=== PATIENT | female | born 1940 | race Caucasian/White ===

== ENCOUNTER 2018-06-04 17:18 | Inpatient (IN) | payer MEDICARE ==
[2018-06-04] VITALS (9 sets, daily range): BP systolic 87–124; BP diastolic 53–76; BMI 25.0
[~2018-06-04] VITALS: Ht 167.6 cm; Wt 62.2 kg
--- NOTE | ~2018-06-04 | MORECARE ---
CASE MANAGEMENT DISCHARGE SUMMARY PATIENT: MCKENNA VILLANUEVA UNIT: [id number] ADM DATE: 06/04/18 AGE: 78 : 41 SEX: F ROOM/BED: D.0387 AUTHOR: BECKY,DOC PHYSICIAN: REFERRING PHYSICIAN: LEVI MCKENNA MD DATE OF SERVICE: 06/11/18 Discharge Plan Patient Name: MCKENNA VILLANUEVA Facility: [facility]:[place] : 1940 Planned Disposition: Inpatient Rehab Anticipated Discharge Date: 06/11/18 Discharge Date: Expected LOS: 7 Initial Reviewer: [id number] Initial Review Date: 06/07/2018 Generated: 06/11/18 2:35 pm Comments DCP- Discharge Planning Updated by [email or web address]: Davy Elizondo on 06/11/18 12:[address] Patient Name: MCKENNA VILLANUEVA Encounter No: [id number] : 1940 Primary Insurance: MEDICARE A & B Anticipated DC Date: 06-11-2018 Planned Disposition: Inpatient Rehab External Planned Provider: [facility] DCP follow-up note: CM SPOKE TO BALJIT OF INPATIENT REHAB, THEY ARE READY TO ACCEPT PT. CM HAD PREVIOUSLY SPOKEN TO DR. MCKENNA WHO INFORMED CM THAT PT IS STABLE FOR DISCHARGE TO REHAB. CM RECEIVED NOTE TO CALL PT'S FAMILY REGARDING REHAB IN [place]. CM MET WITH PT IN ROOM WHO REPORT THAT SHE WANTS REHAB IN [place] SO SHE CAN BE CLOSE TO FAMILY AND HER DOGGIES. IMPORTANT MESSAGE FROM MEDICARE PROVIDED AND EXPLAINED. PT ASKED THAT CM CALL EAGLE, HER DAUGHTER. CM CALLED EAGLE ENMA, , WHO REQUESTED REFERRAL TO [facility]. 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 CM EXPLAINED THAT PT IS STABLE FOR DISCHARGE TODAY AND THAT PT HAD ALREADY BEEN ACCEPTED FOR REHAB AT [place]. EAGLE REPORTS SHE WANTS PT IN [place] TO BE CLOSE TO FAMILY. CM WILL SEND REFERRAL TO [place] [facility] AND ASK FOR REHAB DETERMINATION FROM [place] SOON POSSIBLE. CM FAXED REFERRAL TO [facility] AT [phone]. CM CALLED [place] [facility], , LEFT DETAILED MESSAGE FOR NADIYA NOTIFYING OF REFERRAL, THAT PT IS STABLE FOR DISCHARGE TODAY AND ASKED FOR DETERMINATION SOON POSSIBLE. CM WAITING ADMISSION DETERMINATION FROM [place] [facility]. JENNIFER Humphrey MANGEMENT DCP- Discharge Planning Updated by [id number]: Davy Elizondo on 06/07/18 4:[address] Patient Name: MCKENNA VILLANUEVA Admission Status: ER Accout number: [id number] Admission Date: 06-04-2018 : 1940 Admission Diagnosis:NON-ST ELEVATION (NSTEMI) MYOCARDIAL INFARCTION Attending: OLIVERIO MCKENNA Current LOS: 3 Anticipated DC Date: Planned Disposition: Inpatient Rehab Primary Insurance: MEDICARE A & B PLANNED EXTERNAL PROVIDER: [facility] Discharge Planning Comments: CM RECEIVED INPATIENT REHAB PRESCREENING ORDER, MET WITH PT IN ROOM TO DISCUSS DISCHARGE PLANNING AND NEEDS. PT REPORTS LIVING AT HOME INDEPENDENTLY WITH HER ADULT DAUGHTER. PT HAS NO MEDICAL EQUIPMENT AND NO OUTSIDE SERVICES ASSISTING IN THE HOME. CM DISCUSSED AVAILABILITY OF HOME HEALTH, REHAB SERVICES AND MEDICAL EQUIPMENT. PT IS AGREEABLE TO REHAB AT [place] WITH PLAN TO DISCHARGE HOME FROM HOSPITAL REHAB; PT REPORTS HER DAUGHTER WILL PICK HER UP FOR DISCHARGE HOME. CM WAITING COMPLETION OF INPATIENT REHAB PRESCREENING AND ADMISSION DETERMINATION FROM [facility]. News Library Director: Davy Elizondo DCPIA - Discharge Planning Initial Assessment Updated by [id number]: Davy Elizondo on 06/11/18 1:30 pm * Is the patient Alert and Oriented? Yes * How many steps to enter\exit or inside your home? NONE * PCP PT REPORTS HAVING ONE, CAN'T REMEMBER NAME RIGHT NOW * Pharmacy [facility] IN [place] * Preadmission Environment Home with Family * ADLs Independent * Equipment None * Other Equipment NO MEDICAL EQUIPMENT PROVIDER PREFERENCE * List name and contact numbers for known caregivers / representatives who currently or will assist patient after discharge: URIAH NORWOOD, DAUGHTER, PHUONG HUYNH, SON, * Verbal permission to speak to the caregivers and representatives has been obtained from the patient. Yes * Community resources currently utilized None * Please name any agencies selected above. NONE * Additional services required to return to the preadmission environment? Yes * Can the patient safely return to the preadmission environment? Yes * Has this patient been hospitalized within the prior 30 days at any hospital? No Coverage Notice Reviewer: [id number] Lucia Elizondo Notice Issued Date-Time: 06/11/2018 9:40 Notice Type: IM Discharge Notice Notice Delivered To: Patient Relationship to Patient: Picker Machine Operator Name: Delivery Method: HAND - Hand Delivered Alma Days: Prior Verbal Notification: Recipient Understood Notice: Yes Recipient Signature: Yes Med Rec Note Co-signed by Attending: Coverage Notice Comment: Last DP export: 06/11/18 12:04 p Patient Name: MCKENNA VILLANUEVA Page 15138 at 1335 All edits/amendments must be made on the electronic document DICTATION DATE: 06/11/18 1334 CERTIFIED REGISTERED NURSE PRACTITIONER: DELBERT 06/11/18 1334 RPT#: [id number] DC DATE: STATUS: ADM IN [facility] [address] [place] [address] END OF REPORT
--- NOTE | ~2018-06-04 | HP ---
PATIENT: MCKENNA SCHMITT MEDICAL RECORD: [id number] ACCOUNT: [id number] LOCATION:[address] : [birth year] ADMISSION DATE: 06/04/18 PCP: No PCP HISTORY AND PHYSICAL EXAMINATION DIAGNOSES: 1. Non-Q-wave myocardial infarction. 2. Atrial fibrillation with rapid ventricular response. 3. Mental status changes. HISTORY: Mrs. Schmitt was found by her family today. She was last seen on Sunday at her house. We do not know how long she was down. She was [facility] to [facility]. Troponin was positive for non-Q-wave myocardial infarction. She is in atrial fibrillation with rapid ventricular response. As best we know, she has no previous cardiac history. She is now being transferred here for further cardiac workup. PHYSICAL EXAMINATION: GENERAL APPEARANCE: Well-nourished, well-developed, appears stated age. Level of distress, comfortable. PSYCHIATRIC: Mental status, alert, normal affect. Orientation, oriented to time, place and person. EYES: Lids and conjunctiva, noninjected. No discharge, no pallor. ENT: Lips, teeth, gums, normal dentition. Oropharynx, no cyanosis, no pallor. NECK: Carotid arteries, bilateral normal upstroke, no bruits, no thrills. JUGULAR VEINS: No jugular venous pressure or distention. CERVICAL LYMPH NODES: Nontender, nonenlarged. THYROID: Not enlarged. Nontender. No nodules. LUNGS: Respiratory effort, unlabored. CHEST: Normal curvature. No thoracic deformity. No chest wall tenderness. Percussion, resonant. Auscultation, clear. No wheezes, no rales, no rhonchi. CARDIOVASCULAR: Tachycardic with atrial fibrillation. EXTREMITIES: No cyanosis, no edema. Peripheral pulses, full and equal in all extremities, except as noted. No bruits appreciated. ABDOMEN: Soft, nondistended. Normal aorta. No bruit. Nontender. No masses. Liver, nontender, no hepatomegaly. Spleen, nontender, no splenomegaly. MUSCULOSKELETAL: No joint tenderness. No joint swelling. No erythema. NEUROLOGICAL: Normal gait, normal strength, normal tone. SKIN: Warm and dry. OVERALL IMPRESSION: Atrial fibrillation with rapid ventricular response. At this time, we will start Cordarone IV. We will use IV diltiazem as well. Proceed with coronary angiography. Further care depends upon findings of the angiography. TRANSINT:[id number] Voice Confirmation ID: [id number] DOCUMENT ID: [id number] HISTORY AND PHYSICAL [id number] PAGE,LEVI MONTILLA MD at 1718 CC: [id number] DICTATION DATE: 06/04/18 174 CONVEX GRINDER: 06/04/18 175 ADM IN [place] [id number] [place] [address]
--- NOTE | ~2018-06-04 | MORECARE ---
CASE MANAGEMENT DISCHARGE SUMMARY PATIENT: MCKENNA VILLANUEVA UNIT: [id number] ADM DATE: 06/04/18 AGE: 78 : 41 SEX: F ROOM/BED: D.7601 AUTHOR: LINETTE PENA PHYSICIAN: REFERRING PHYSICIAN: LEVI MCKENNA MD DATE OF SERVICE: 06/12/18 Discharge Plan Patient Name: MCKENNA VILLANUEVA Facility: [facility]:[place] : 1940 Planned Disposition: Inpatient Rehab Anticipated Discharge Date: 06/12/18 Discharge Date: Expected LOS: 8 Initial Reviewer: [id number] Initial Review Date: 06/07/2018 Generated: 06/12/18 11:09 am Comments DCP- Discharge Planning Updated by [id number]: Davy Elizondo on 06/12/18 9:[address] Patient Name: MCKENNA VILLANUEVA Encounter No: [id number] : 1940 Primary Insurance: MEDICARE A & B Anticipated DC Date: 06-12-2018 Planned Disposition: Inpatient Rehab External Planned Provider: [facility] DCP follow-up note: CM RECEIVED CALL FROM BEHZAD OF [place] [facility], , PT ACCEPTED FOR REHAB TODAY, SHE HAS NOTIFIED PT'S DAUGHTER WHO WILL PROVIDE TRANSPORTATION TO [place] [facility] TODAY. PT NOTIFIED AND IN AGREEMENT WITH DISCHARGE TO REHAB TODAY, ASKED CM TO CALL HER DAUGHTER TO PICK HER UP. BEDSIDE NURSE NOTIFIED. CM CALLED EAGLE NORWOOD, , LEFT TELEPHONE [facility] OF PT'S ACCEPTANCE FOR [facility]AB AT [place] [facility] REQUESTED TRANSPORT OF PT TO REHAB TODAY. FAX DISCHARGE INFORMATION TO [facility] AT [phone]. NURSE REPORT TO BE CALLED [facility], . DAUGHTER TO PROVIDE TRANSPORTATION TO REHAB TODAY. JENNIFER Humphrey DCP- Discharge Planning Updated by [id number]: Davy Elizondo on 06/11/18 2:[address] Patient Name: MCKENNA VILLANUEVA Encounter No: [id number] : 1940 Primary Insurance: MEDICARE A & B Anticipated DC Date: 06-11-2018 Planned Disposition: Inpatient Rehab External [facility] DCP follow-up note: CM SPOKE TO BALJIT OF INPATIENT REHAB, THEY ARE READY TO ACCEPT PT. CM HAD PREVIOUSLY SPOKEN TO DR. MCKENNA WHO INFORMED CM THAT PT IS STABLE FOR DISCHARGE TO REHAB. CM RECEIVED NOTE TO CALL PT'S FAMILY REGARDING REHAB IN [place]. CM MET WITH PT IN ROOM WHO REPORT THAT SHE WANTS REHAB IN [place] SO SHE CAN BE CLOSE TO FAMILY AND HER DOGGIES. IMPORTANT MESSAGE FROM MEDICARE PROVIDED AND EXPLAINED. PT ASKED THAT CM CALL EAGLE, HER DAUGHTER. CM CALLED EAGLE NORWOOD, , WHO REQUESTED REFERRAL TO [facility]. 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 CM EXPLAINED THAT PT IS STABLE FOR DISCHARGE TODAY AND THAT PT HAD ALREADY BEEN ACCEPTED FOR REHAB AT [place]. EAGLE REPORTS SHE WANTS PT IN [place] TO BE CLOSE TO FAMILY. CM WILL SEND REFERRAL TO [place] [facility] AND ASK FOR REHAB DETERMINATION FROM [place] SOON POSSIBLE. CM FAXED REFERRAL TO [facility] AT [phone]. [facility], , LEFT DETAILED MESSAGE FOR NADIYA NOTIFYING OF REFERRAL, THAT PT IS STABLE FOR DISCHARGE TODAY AND ASKED FOR DETERMINATION SOON POSSIBLE. CM WAITING ADMISSION DETERMINATION FROM [facility]. JENNIFER Humphrey Appended by Davy Elizondo on 06/11/2018 15:04 MATERIALS MANAGEMENT MANAGER: CM RECEIVED CALL FROM BEHZAD OF [facility], , REFERRAL RECEIVED, CM INFORMED BEHZAD \ THAT PT IS STABLE FOR DISCHARGE TODAY AND ASKED FOR DETERMINATION SOON POSSIBLE. FAMILY TO PROVIDE TRANSPORTATION TO [place] [facility] IF ACCEPTED. CM WAITING ADMISSION DETERMINATION FROM [facility]. JENNIFER Humphrey DCP- Discharge Planning Updated by [id number]: Davy Elizondo on 06/07/18 4:[address] Patient Name: MCKENNA VILLANUEVA Admission Status: ER Accout number: [id number] Admission Date: 06-04-2018 : 1940 Admission Diagnosis:NON-ST ELEVATION (NSTEMI) MYOCARDIAL INFARCTION Attending: OLIVERIO MCKENNA Current LOS: 3 Anticipated DC Date: Planned Disposition: Inpatient Rehab Primary Insurance: MEDICARE A & B PLANNED EXTERNAL PROVIDER: [facility] IN[facility] Discharge Planning Comments: CM RECEIVED INPATIENT REHAB PRESCREENING ORDER, MET WITH PT IN ROOM TO DISCUSS DISCHARGE PLANNING AND NEEDS. PT REPORTS LIVING AT HOME INDEPENDENTLY WITH HER ADULT DAUGHTER. PT HAS NO MEDICAL EQUIPMENT AND NO OUTSIDE SERVICES ASSISTING IN THE HOME. CM DISCUSSED AVAILABILITY OF HOME HEALTH, REHAB SERVICES AND MEDICAL EQUIPMENT. PT IS AGREEABLE TO REHAB AT [place] WITH PLAN TO DISCHARGE HOME FROM HOSPITAL REHAB; PT REPORTS HER DAUGHTER WILL PICK HER UP FOR DISCHARGE HOME. CM WAITING COMPLETION OF INPATIENT REHAB PRESCREENING AND ADMISSION DETERMINATION FROM [facility]. Shingles Roofer: Davy Elizondo DCPIA - Discharge Planning Initial Assessment Updated by [id number]: Davy Elizondo on 06/11/18 1:30 pm * Is the patient Alert and Oriented? Yes * How many steps to enter\exit or inside your home? NONE * PCP PT REPORTS HAVING ONE, CAN'T REMEMBER NAME RIGHT NOW * Pharmacy [facility] IN [place] * Preadmission Environment Home with Family * ADLs Independent * Equipment None * Other Equipment NO MEDICAL EQUIPMENT PROVIDER PREFERENCE * List name and contact numbers for known caregivers / representatives who currently or will assist patient after discharge: URIAH NORWOOD, DAUGHTER, PHUONG HUYNH, SON, * Verbal permission to speak to the caregivers and representatives has been obtained from the patient. Yes * Community resources currently utilized None * Please name any agencies selected above. NONE * Additional services required to return to the preadmission environment? Yes * Can the patient safely return to the preadmission environment? Yes * Has this patient been hospitalized within the prior 30 days at any hospital? No Coverage Notice Reviewer: [id number] - Davy Elizondo Notice Issued Date-Time: 06/11/2018 9:40 Notice Type: IM Discharge Notice Notice Delivered To: Patient Relationship to Patient: Laboratory Mechanical Technician Name: Delivery Method: HAND - Hand Delivered Alma Days: Prior Verbal Notification: Recipient Understood Notice: Yes Recipient Signature: Yes Med Rec Note Co-signed by Attending: Coverage Notice Comment: Last DP export: 06/12/18 9:01 a Patient Name: MCKENNA VILLANUEVA Page 90518 at 1009 All edits/amendments must be made on the electronic document DICTATION DATE: 06/12/181007 AGRICULTURAL SERVICE WORKER: DELBERT 06/12/181007 RPT#: [id number] DC DATE: STATUS: ADM IN [facility] [address] [place] [address] END OF REPORT
--- NOTE | ~2018-06-04 | OP ---
PATIENT NAME: MCKENNA VILLANUEVA MEDICAL RECORD: [id number] :[birth year] LOCATION:D.M2 D.7 ADMISSION DATE:06/04/18 SURGEON: LEVI MCKENNA MD DATE OF OPERATION: 06/04/2018 PROCEDURES: 1. Left heart catheterization. 2. Selective coronary angiography. 3. Left ventriculogram. INDICATION: Non-Q-wave myocardial infarction. DESCRIPTION OF PROCEDURE: After informed consent was obtained with detailed description of risks and benefits as well as alternative therapies, the patient elected to proceed with angiogram and heart catheterization. The right femoral area was prepped and draped in normal sterile fashion. Right femoral artery was cannulated via modified Seldinger technique with placement of 6-Citizen Of [place] sheath. All catheters were exchanged through this sheath. FINDINGS: Left ventriculogram performed in standard 30-degree QUIROS view reveals good cardiac wall motion. Ejection fraction 50%. SELECTIVE CORONARY ANGIOGRAPHY: Left main, left anterior descending, left circumflex, and right coronary are all smooth-walled vessels with no angiographic evidence of coronary artery disease. The patient was in atrial fibrillation at the beginning of the case. With left ventriculogram, the patient converted to sinus rhythm; however, went back to atrial fibrillation. OVERALL IMPRESSION: Non-Q-wave myocardial infarction secondary to demand ischemia from the atrial fibrillation with rapid ventricular response. Center medical management on treatment of the atrial fibrillation. TRANSINT:[id number] Voice Confirmation ID: [id number] DOCUMENT ID: [id number] LEVI MCKENNA MD at 1718 CC: [id number] DICTATION DATE: 06/04/181746 INSPECTOR AND SORTER: 06/04/18 2208 ADM IN [place] [address] [place] [address]
--- NOTE | ~2018-06-04 | MORECARE ---
CASE MANAGEMENT DISCHARGE SUMMARY PATIENT: MCKENNA VILLANUEVA UNIT: [id number] ADM DATE: 06/04/18 AGE: 78 : 41 SEX: F ROOM/BED: D.7257 AUTHOR: BECKY,DOC PHYSICIAN: REFERRING PHYSICIAN: LEVI MCKENNA MD DATE OF SERVICE: 06/11/18 Discharge Plan Patient Name: MCKENNA VILLANUEVA Facility: [facility]:[place] : 1940 Planned Disposition: Inpatient Rehab Anticipated Discharge Date: 06/11/18 Discharge Date: Expected LOS: 7 Initial Reviewer: [id number] Initial Review Date: 06/07/2018 Generated: 06/11/18 4:08 pm Comments DCP- Discharge Planning Updated by [id number]: Davy Elizondo on 06/11/18 2:[address] Patient Name: MCKENNA VILLANUEVA Encounter No: [id number] : 1940 Primary Insurance: MEDICARE A & B Anticipated DC Date: 06-11-2018 Planned Disposition: Inpatient Rehab External Planned Provider: [facility] DCP follow-up note: CM SPOKE TO BALJIT OF INPATIENT REHAB, THEY ARE READY TO ACCEPT PT. CM HAD PREVIOUSLY SPOKEN TO DR. MCKENNA WHO INFORMED CM THAT PT IS STABLE FOR DISCHARGE TO REHAB. CM RECEIVED NOTE TO CALL PT'S FAMILY REGARDING REHAB IN [place]. CM MET WITH PT IN ROOM WHO REPORT THAT SHE WANTS REHAB IN [place] SO SHE CAN BE CLOSE TO FAMILY AND HER DOGGIES. IMPORTANT MESSAGE FROM MEDICARE PROVIDED AND EXPLAINED. PT ASKED THAT CM CALL EAGLE, HER DAUGHTER. CM CALLED EAGLE ENMA, , WHO REQUESTED REFERRAL TO [facility]. 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 CM EXPLAINED THAT PT IS STABLE FOR DISCHARGE TODAY AND THAT PT HAD ALREADY BEEN ACCEPTED FOR REHAB AT [place]. EAGLE REPORTS SHE WANTS PT IN [place] TO BE CLOSE TO FAMILY. CM WILL SEND REFERRAL TO [place] [facility] AND ASK FOR REHAB DETERMINATION FROM [place] SOON POSSIBLE. CM FAXED REFERRAL TO [facility] AT [phone]. CM CALLED [place] [facility], , LEFT DETAILED MESSAGE FOR NADIYA NOTIFYING OF REFERRAL, THAT PT IS STABLE FOR DISCHARGE TODAY AND ASKED FOR DETERMINATION SOON POSSIBLE. CM WAITING ADMISSION DETERMINATION FROM [place] [facility]. Davy Elizondo, CASE MANGEMENT Appended by Davy Elizondo on 06/11/2018 15:04 MANDREL CLEANER: CM RECEIVED CALL FROM BEHZAD OF [facility], , REFERRAL RECEIVED, CM INFORMED BEHZAD \ THAT PT IS STABLE FOR DISCHARGE TODAY AND ASKED FOR DETERMINATION SOON POSSIBLE. FAMILY TO PROVIDE TRANSPORTATION TO [facility] IF ACCEPTED. CM WAITING ADMISSION DETERMINATION FROM [facility]. JENNIFER Humphrey DCP- Discharge Planning Updated by [id number]: Davy Elizondo on 06/07/18 4:[address] Patient Name: MCKENNA VILLANUEVA Admission Status: ER Accout number: [id number] Admission Date: 06-04-2018 : 1940 Admission Diagnosis:NON-ST ELEVATION (NSTEMI) MYOCARDIAL INFARCTION Attending: OLIVERIO MCKENNA Current LOS: 3 Anticipated DC Date: Planned Disposition: Inpatient Rehab Primary Insurance: MEDICARE A & B PLANNED EXTERNAL PROVIDER: [facility] Discharge Planning Comments: CM RECEIVED INPATIENT REHAB PRESCREENING ORDER, MET WITH PT IN ROOM TO DISCUSS DISCHARGE PLANNING AND NEEDS. PT REPORTS LIVING AT HOME INDEPENDENTLY WITH HER ADULT DAUGHTER. PT HAS NO MEDICAL EQUIPMENT AND NO OUTSIDE SERVICES ASSISTING IN THE HOME. CM DISCUSSED AVAILABILITY OF HOME HEALTH, REHAB SERVICES AND MEDICAL EQUIPMENT. PT IS AGREEABLE TO REHAB AT [place] WITH PLAN TO DISCHARGE HOME FROM HOSPITAL REHAB; PT REPORTS HER DAUGHTER WILL PICK HER UP FOR DISCHARGE HOME. CM WAITING COMPLETION OF INPATIENT REHAB PRESCREENING AND ADMISSION DETERMINATION FROM [facility]. Termite Exterminator: Davy Elizondo DCPIA - Discharge Planning Initial Assessment Updated by [id number]: Davy Elizondo on 06/11/18 1:30 pm * Is the patient Alert and Oriented? Yes * How many steps to enter\exit or inside your home? NONE * PCP PT REPORTS HAVING ONE, CAN'T REMEMBER NAME RIGHT NOW * Pharmacy [facility] IN [place] * Preadmission Environment Home with Family * ADLs Independent * Equipment None * Other Equipment NO MEDICAL EQUIPMENT PROVIDER PREFERENCE * List name and contact numbers for known caregivers / representatives who currently or will assist patient after discharge: URIAH NORWOOD, DAUGHTER, PHUONG HUYNH, SON, * Verbal permission to speak to the caregivers and representatives has been obtained from the patient. Yes * Community resources currently utilized None * Please name any agencies selected above. NONE * Additional services required to return to the preadmission environment? Yes * Can the patient safely return to the preadmission environment? Yes * Has this patient been hospitalized within the prior 30 days at any hospital? No Coverage Notice Reviewer: [id number] Lucia Elizondo Notice Issued Date-Time: 06/11/2018 9:40 Notice Type: IM Discharge Notice Notice Delivered To: Patient Relationship to Patient: Slip Cover Maker Name: Delivery Method: HAND - Hand Delivered Al[place] Days: Prior Verbal Notification: Recipient Understood Notice: Yes Recipient Signature: Yes Med Rec Note Co-signed by Attending: Coverage Notice Comment: Last DP export: 06/11/18 12:35 p Patient Name: MCKENNA VILLANUEVA Page 33569 at 1508 All edits/amendments must be made on the electronic document DICTATION DATE: 06/11/18 150 FRONT OFFICE MEDICAL ASSISTANT: DELBERT 06/11/18 1507 RPT#: [id number] DC DATE: STATUS: ADM IN [facility] [address] [place] [address] END OF REPORT
--- NOTE | ~2018-06-04 | MORECARE ---
CASE MANAGEMENT DISCHARGE SUMMARY PATIENT: MCKENNA VILLANUEVA UNIT: [id number] ADM DATE: 06/04/18 AGE: 78 : 41 SEX: F ROOM/BED: D.2117 AUTHOR: BECKY,DOC PHYSICIAN: REFERRING PHYSICIAN: LEVI MCKENNA MD DATE OF SERVICE: 06/07/18 Discharge Plan Patient Name: MCKENNA VILLANUEVA [facility] [facility] 1940 Planned Disposition: Inpatient Rehab Anticipated Discharge Date: Discharge Date: Expected LOS: Initial Reviewer: [email or web address] Initial Review Date: 06/07/2018 Generated: 06/07/18 6:53 pm Comments DCP- Discharge Planning Updated by [email or web address]: Davy Elizondo on 06/07/18 4:[address] Patient Name: MCKENNA VILLANUEVA Admission Status: ER Accout number: [id number] Admission Date: 06-04-2018 : 1940 Admission Diagnosis:NON-ST ELEVATION (NSTEMI) MYOCARDIAL INFARCTION Attending: OLIVERIO MCKENNA Current LOS: 3 Anticipated DC Date: Planned Disposition: Inpatient Rehab Primary Insurance: MEDICARE A & B PLANNED EXTERNAL PROVIDER: [facility] Discharge Planning Comments: CM RECEIVED INPATIENT REHAB PRESCREENING ORDER, MET WITH PT IN ROOM TO DISCUSS DISCHARGE PLANNING AND NEEDS. PT REPORTS LIVING AT HOME INDEPENDENTLY WITH HER ADULT DAUGHTER. PT HAS NO MEDICAL EQUIPMENT AND NO OUTSIDE SERVICES ASSISTING IN THE HOME. CM DISCUSSED AVAILABILITY OF HOME HEALTH, REHAB SERVICES AND MEDICAL EQUIPMENT. PT IS AGREEABLE TO REHAB AT [facility] WITH PLAN TO DISCHARGE HOME FROM HOSPITAL REHAB; PT REPORTS HER DAUGHTER WILL PICK HER UP FOR DISCHARGE HOME. CM WAITING COMPLETION OF INPATIENT REHAB PRESCREENING AND ADMISSION DETERMINATION FROM [facility]. Drum Stenciler: Davy Elizondo DCPIA - Discharge Planning Initial Assessment Updated by [email or web address]: Davy Elizondo on 06/07/18 5:45 pm * Is the patient Alert and Oriented? Yes * How many steps to enter\exit or inside your home? NONE * PCP PT REPORTS HAVING ONE, CAN'T REMEMBER NAME RIGHT NOW * Pharmacy [facility] IN [place] * Preadmission Environment Home with Family * ADLs Independent * Equipment None * Other Equipment NO MEDICAL EQUIPMENT PROVIDER PREFERENCE * List name and contact numbers for known caregivers / representatives who currently or will assist patient after discharge: URIAH NORWOOD, DAUGHTER, (PT NOT ABLE TO CONFIRM THIS NUMBER BY MEMORY) * Verbal permission to speak to the caregivers and representatives has been obtained from the patient. Yes * Community resources currently utilized None * Please name any agencies selected above. NONE * Additional services required to return to the preadmission environment? Yes * Can the patient safely return to the preadmission environment? Yes * Has this patient been hospitalized within the prior 30 days at any hospital? No Last DP export: 06/07/18 4:45 Patient Name: MCKENNA VILLANUEVA Page [id number] at 1753 All edits/amendments must be made on the electronic document DICTATION DATE: 06/07/181751 PHOTOENGRAVING SKETCH MAKER: DELBERT 06/07/181751 RPT#: [id number] DC DATE: STATUS: ADM IN [facility] [address] [place] [address] END OF REPORT
--- NOTE | ~2018-06-04 | EC ---
PATIENT:MCKENNA VILLANUEVA DATE OF SERVICE: 06/04/18 SEX: F MEDICAL RECORD: [id number] DATE OF : [birth year] LOCATION:D.M2 D.211 AGE OF PATIENT: 78 ADMISSION DATE: 06/04/18 REFERRING PHYSICIAN: INTERPRETING PHYSICIAN: LEVI AGUDELO MD ECHOCARDIOGRAM REPORT ECHO CHARGES 4 ECHO COMPLETE Date: 06/05/18 CLINICAL DIAGNOSIS: AFIB ECHOCARDIOGRAPHIC MEASUREMENTS (adult normal given) AC root (d.<3.7cm) 2.7 cm LV Septum d (<1.2 cm> 1.1 cm Valve Excursion 1.5 cm LV Septum (systole) 1.4 cm Left Atria (s.<4.0cm> 3.7 cm LVPW d(<1.2cm) 0.9 cm RV (d.<2.3cm) 2.8 cm LVPW (sytole) 1.0 cm LV diastole(<5.6CM) 3.8 cm MV E-F(>70mm/sec) cm LV systole 2.8 cm LVOT Diameter 1.5 cm MV exc.(>10mm) cm Est.ejection fraction (50-75%) % DOPPLER: LVIT cm/sec A 78 cm/sec E 74 cm/sec LA cm/sec RVSP 35.0 mmHg LVOT 83 cm/sec AOP1/2T m/s Asc. Ao 127 cm/sec RVOT 68 cm/sec RA cm/sec PA 89 cm/sec AV Gradient Peak 6.5 mmHg AV Mean 3.5 mmHg AV Area 1.2 cm MV Gradient Peak 6.3 mmHg MV Mean 2.3 mmHg MV Area cm COMMENTS: Guest Services Director: Jory [facility] Manager Supply: 1 Dr. Agudelo TAPE# PACS Pericardial Effusion N DATE OF SERVICE: 06/05/2018 FINDINGS: 1. Left ventricular chamber size is within normal limits. Left ventricular systolic function is normal. Overall ejection fraction is estimated at 65%. 2. Left atrium is within normal limits at 4.0 cm. Right atrium and right ventricle chamber sizes are mildly dilated. 3. Valvular structures have normal structure and motion. 4. Doppler interrogation reveals trace mitral regurgitation and mild tricuspid regurgitation. No other valvular insufficiency or stenosis. Pulmonary systolic ECHOCARDIOGRAM REPORT [id number] MCKENNA VILLANUEVA pressure is estimated at 35 mmHg. 5. No evidence of pericardial effusion or left ventricular thrombus. 6. No cardiac source of neurologic emboli. TRANSINT:[id number] Voice Confirmation ID: [id number] DOCUMENT ID: [id number] LEVI AGUDELO MD at 1718 CC: [id number] DICTATION DATE: 06/05/18 1525 WASHERY ENGINEER: 06/05/18 1819 ADM IN [facility] [address] [place] [id number]
--- NOTE | ~2018-06-04 | DS ---
PATIENT:MCKENNA SCHMITT :[birth year] MEDICAL RECORD: [id number] DISCHARGE SUMMARY ADMISSION DATE: 06/04/18 DISCHARGE DATE: 06/12/18 DIAGNOSES: 1. Atrial fibrillation with rapid ventricular response. 2. Found down. HOSPITAL COURSE: Ms. Schmitt was found down, most likely secondary to a nonintentional overdose of her narcotics and benzodiazepines, was found to be in atrial fibrillation with rapid ventricular response. Initially felt to be having an acute NM. She was transferred emergently to us. Cardiac catheterization revealed no significant disease. She was given amiodarone, converted to sinus rhythm. The IV amiodarone was changed over to p.o. amiodarone. She remained in sinus rhythm the entire time. She came around neurologically after just that 2 days and has been neurologically fine since. She was being transferred to [facility] for further strengthening before going back home, to continue the amiodarone, discontinuation of her Coreg. Will follow up with [facility] as needed. TRANSINT:[id number] Voice Confirmation ID: [id number] DOCUMENT ID: [id number] LEVI MCKENNA MD at 1025 CC: [id number] DICTATION DATE: 06/12/18 1108 LITHOGRAPH DESIGNER: 06/13/18 0040 DIS IN 06/12/18 [id number] [place] [address]
--- NOTE | ~2018-06-04 | HEMODYNAMI ---
PATIENT:MCKENNA VILLANUEVA MEDICAL RECORD: [id number] : 42 LOCATION:[facility] ADMISSION DATE: 06/04/18 Generatedon:06/04/201817:54 Patient name: MCKENNA VILLANUEVA Patient #: [id number] SSN: : 1940 Date of study: 06/04/2018 Page: Of Hemodynamic Procedure Report Patient Data Patient Demographics Procedure consent was obtained First Name: MCKENNA Gender: Female Last Name: RICH : 1940 Patient #: [id number] Age: 78 year(s) Race: Unknown Additional ID: [id number] Contact details [address]: [address] [place] [address] State: [place] City: [place] Zip code: [address] Admission Admission Data Admission Date: 06/04/2018 Admission Time: 17:18 Procedure Procedure Types Cath Procedure Diagnostic Procedure LHC LHC w/Coronaries Procedure Description Procedure Date Procedure Date: 06/04/2018 Procedure Start Time: 17:40 Procedure End Time: 17:53 Procedure Staff Name Function Paulo Agudelo MD Performing Physician Rema Espinoza RT Monitor Karel Clifotn RN Nurse Cady Reyes RT Scrub Procedure Data Cath Procedure Fluoroscopy Diagnostic fluoroscopy Total fluoroscopy Time: 0.7 time: 0.7 min min Diagnostic fluoroscopy Total fluoroscopy dose: 293 dose: 293 mGy mGy Contrast Material Contrast Material Type Amount (ml) Isovue 300 49 Entry Location Entry Primary Successful Side Size Upsize Upsize Entry Closure Succes sful Closure Location (Fr) 1 (Fr) 2 (Fr) Remarks Device Remarks Femoral Right 6 Fr Exoseal artery Short Estimated blood loss: 10 ml Diagnostic catheters Device Type Used For End Catheter Placement MULTIPACK Pigtail 5 Fr Procedure catheter MULTIPACK JL 4.0 5Fr Procedure catheter MULTIPACK 3DRC 5Fr Procedure catheter Procedure Complications No complications Procedure Medications Medication Administration Route Dosage Oxygen etCO2 Nasal cannula 2 l/min Heparin Flush Bag added to field 2 bags (1000units/500ml NS) 0.9% NaCl I.V. 100 ml/hr Fentanyl I.V. 50 mcg Amiodarone Loading I.V. drip 150 mg Dose (150mg/100ml D5W) Hemodynamics Rest Heart Rate: 116 (bpm) Snapshots Pre Cath Intra NCS Post Cath Vital Signs Time Heart Resp SPO2 etCO2 NIBP (mmHg) Rhythm Pain Sedation Rate (ipm) (%) (mmHg) Status Level (bpm) 17:41:26 69 19 100 0 117/68(91) NSR 0 (11) 10(A) , No pain 17:45:32 131 16 100 0 137/74(113) NSR 0 (11) 10(A) , No pain 17:49:41 127 17 100 0 125/68(90) NSR 0 (11) 10(A) , No pain 17:53:45 109 29 100 0 99/56(88) NSR 0 (11) 10(A) , No pain Medications Time Medication Route Dose Verified Delivered Reason Notes Eff ectiveness by by 17:41:56 Oxygen etCO2 2 Paulo Vinson Per Nasal l/min Jammie Clifton RN physician cannula 17:42:03 Heparin Flush added 2 Paulo Vinson used for Bag to bags Jammie Clifton RN procedure (1000units/500ml field NS) 17:42:13 0.9% NaCl I.V. 100 Paulo Vinson Per ml/hr Jammie Clifton RN physician 17:42:21 Fentanyl I.V. 50 Paulo Vinson for mcg Jammie Clifton RN sedation 17:45:38 Amiodarone I.V. 150 Paulo Vinson for Loading Dose drip mg Jammie Clifton RN arrhythmia (150mg/100ml D5W) Procedure Log Time Note 17:10:04 Karel Clifton RN sent for patient. Start room use. 17:33:23 Time tracking: Stay late (Procedures after 5:00pm) 17:33:28 Plan of Care:Hemodynamics will remain stable., Cardiac rhythm will remain stable., Comfort level will be maintained., Respiratory function will remain adequate., Patient/ family verbilizes understanding of procedure., Procedure tolerated without complication., Recovers from procedure without complications.. 17:33:46 Patient received from ED to CCL 1 Alert and oriented. Tansferred to table in Supine position. 17:33:47 Patient arrives emergently. 17:33:49 Warm blankets applied, and angelika hugger turned on for patient comfort. 17:33:50 Correct patient and procedure confirmed by team. 17:33:52 Signed procedure consent form obtained from not obtained; Physician declared emergency. 17:33:59 ECG and BP/O2 sat monitors applied to patient. 17:36:06 Vital chart was started 17:36:15 Baseline sample Acquired. 17:36:20 Rhythm: sinus tachycardia 17:36:22 Full Disclosure recording started 17:36:25 H&P Date Dictated: 06/04/2018 Emergent; H&P N/A. 17:36:26 Pre-procedure instructions explained to patient. 17:36:26 Pre-op teaching completed and patient verbalized understanding. 17:36:28 Family unavailable. 17:36:29 Patient NPO since Midnight. 17:36:31 Is the patient allergic to Iodine/contrast media? No. 17:36:34 Is patient on blood thinner?No 17:36:36 Patient diabetic? Unknown. 17:36:39 Previous problem with sedation/anesthesia? Unknown ? 17:36:40 Snore? Unknown 17:36:41 Sleep apnea? Unknown 17:36:43 Deviated septum? Unknown 17:36:46 Opens mouth fully? Unknown 17:36:47 Sticks out tongue? Unknown 17:36:49 Airway obstruction? Unknown ? 17:36:51 Dentures? Unknown ? 17:36:55 Pre procedure: right dorsailis pedis pulse 1+ Palpable, but thready & weak; easily obliterated 17:37:01 Patient pain scale 0/10 ?. 17:37:10 IV patent on arrival in right wrist with 0.9% NaCl at KVO. 17:37:13 Lab results completed and on chart. 17:37:19 Right groin area was prepped with chlora-prep and draped in sterile fashion 17:37:25 Alarms reviewed by R. N. 17:37:25 Sharps counted by scrub and verified by R.N. 17:37:26 --------ALL STOP TIME OUT------ 17:37:27 Final Timeout: patient, procedure, and site verified with staff and physician. All members of the team are in agreement. 17:37:29 Right groin site verified by team. 17:37:32 Physical assessment completed. ASA score P 3 - A patient with severe systemic disease as per Paulo Agudelo MD. 17:37:47 Sedation plan: IV Moderate Sedation Medication:Versed, Fentanyl 17:40:13 Procedure started. 17:40:19 Local anesthetic to right femoral artery with Lidocaine 2% by Paulo Agudelo MD.INITIAL ACCESS ONLY 17:40:37 A 6 Fr Short sheath was inserted into the Right Femoral artery 17:40:44 Use device set Femoral Dx 17:40:54 ACIST Syringe (50600) opened to sterile field. 17:40:54 Bag Decanter (2002S) opened to sterile field. 17:40:56 Medline Cath Pack ([id number]) opened to sterile field. 17:40:59 ACIST Hand Control (00204) opened to sterile field. 17:41:00 ACIST Manifold (97478) opened to sterile field. 17:41:01 Tegaderm 4 x 4 (1626W) opened to sterile field. 17:41:36 DIAGNOSTIC WIRE .035 260cm J wire (274927) opened to sterile field. 17:41:38 DIAGNOSTIC Multipack 5Fr catheter set (CW8702) opened to sterile field. 17:41:42 A MULTIPACK Pigtail 5 Fr catheter was advanced over the wire and used for Procedure. 17:41:44 LV angiography performed. 17:41:45 LV gram done using QUIROS 17:41:51 EF : 50 % 17:41:56 Oxygen 2 l/min etCO2 Nasal cannula was administered by Karel Clifton RN; Per physician; 17:41:57 Injector settings: Ml/sec: 10, Volume: 20, 17:42:00 Catheter removed. 17:42:03 Heparin Flush Bag (1000units/500ml NS) 2 bags added to field was administered by Karel Clifton RN; used for procedure; 17:42:13 0.9% NaCl 100 ml/hr I.V. was administered by Karel Clifton RN; Per physician; 17:42:14 A MULTIPACK JL 4.0 5Fr catheter was advanced over the wire and used for Procedure. 17:42:21 Fentanyl 50 mcg I.V. was administered by Karel Clifton RN; for sedation; 17:42:21 LCA angiography performed. 17:42:28 SHEATH 6FR Vidalia (UUG459) opened to sterile field. 17:43:34 Catheter removed. 17:43:38 A MULTIPACK 3DRC 5Fr catheter was advanced over the wire and used for Procedure. 17:43:48 EXOSEAL 6Fr (EX600) opened to sterile field. 17:44:11 RCA angiography performed. 17:44:13 Catheter removed. 17:44:27 Sheath removed intact; hemostasis achieved with Exoseal to the Right Femoral artery. 17:44:30 Procedure ended.(Physican Out) 17:44:35 Fluoroscopy time 00.70 minutes. 17:44:40 Fluoroscopy dose: 293 mGy 17:44:40 Flurop Dose total: 293 17:44:45 Contrast amount:Isovue 300 49ml. 17:44:46 Sharps counted by scrub and verified by R.N. 17:44:57 Insertion/operative site no bleeding no hematoma. 17:45:00 Post-op/insertion site Right Femoral artery dressed using a 4 x 4 and Tegaderm. 17:45:01 Post Procedure Pulses reassessed and unchanged 17:45:03 Post-procedure physical assessment completed. ASA score P 3 - A patient with severe systemic disease as per Paulo Agudelo MD. 17:45:06 Post procedure rhythm: unchanged. 17:45:10 Estimated blood loss: 10 ml 17:45:12 Post procedure instruction explained to patient.Patient verbalizes understanding. 17:45:13 Patient needs reinforcement of post procedure teaching. 17:45:18 Procedure type changed to Cath procedure, Diagnostic procedure, LHC, LHC w/Coronaries 17:45:20 Procedure and supply charges have been captured, reviewed, submitted and are correct. 17:45:24 Procedure Complication : No complications 17:45:38 Amiodarone Loading Dose (150mg/100ml D5W) 150 mg I.V. drip was administered by Karel Clifton RN; for arrhythmia; 17:53:46 Vital chart was stopped 17:53:46 See physician's report for complete and final results. 17:53:52 Report given to CVICU. 17:53:54 Patient transfered to CVICU with Bed. 17:53:56 Procedure ended. 17:53:56 Full Disclosure recording stopped 17:53:58 End room use (Document Last) Device Usage Item Name Manufacture Quantity Catalog Hospital Part Current Minimal L ot# / Number Charge Number Stock Stock Serial# Code ACIST Acist 1 12785 099144 917168 219528 20 Syringe Medical (43653) Systems Inc Bag Microtek 1 2001S 402101 29356 877442 5 Decanter Medical Inc. () Medline Medline 1 [id number] 190689 13846 666894 5 Cath Pack ([id number]) ACIST Hand Acist 1 83236 981151 569051 825269 5 Control Medical (48757) Systems Inc ACIST Acist 1 44324 107583 088766 514716 5 Manifold Medical (12175) Systems Inc Tegaderm 4 3M 1 1626W 261270 080980 426619 5 x 4 (1626W) DIAGNOSTIC St Anjel 1 035148 137797 901021 120608 30 WIRE .035 260cm J wire (649288) DIAGNOSTIC Cardinal 1 RW6364 444815 41634 437790 30 Multipack Health 5Fr catheter set (EC6388) MULTIPACK Cardinal 1 968944 5 Pigtail 5 Health Fr catheter MULTIPACK Cardinal 1 705090 5 JL 4.0 5Fr Health catheter SHEATH 6FR Terumo 1 HVF059 152836 880132 840772 40 Vidalia (XIR721) MULTIPACK Cardinal 1 699749 5 3DRC 5Fr Health catheter EXOSEAL 6Fr Cardinal 1 EX600 710107 608143 600023 10 (EX600) Health Signature Audit [place] Stage Time Signature Unsigned Intra-Procedure 06/04/2018 Rema Espinoza 5:54:16 PM RT(R) Signatures Monitor : Rema Espinoza Signature : RT Date : Time : [facility] [address] [place] [address]
--- NOTE | ~2018-06-04 | MORECARE ---
CASE MANAGEMENT DISCHARGE SUMMARY PATIENT: MCKENNA VILLANUEVA UNIT: [id number] ADM DATE: 06/04/18 AGE: 78 : 42 SEX: F ROOM/BED: D.0954 AUTHOR: BECKYDOC PHYSICIAN: REFERRING PHYSICIAN: LEVI MCKENNA MD DATE OF SERVICE: 06/12/18 Discharge Plan Patient Name: MCKENNA VILLANUEVA Facility: [facility]:[place] : 1940 Planned Disposition: Inpatient Rehab Anticipated Discharge Date: 06/12/18 Discharge Date: Expected LOS: 8 Initial Reviewer: [email or web address] Initial Review Date: 06/07/2018 Generated: 06/12/18 2:15 pm Comments DCP- Discharge Planning Updated by [email or web address]: Davy Elizondo on 06/12/18 12:[address] Patient Name: MCKENNA VILLANUEVA Encounter No: [id number] : 1940 Primary Insurance: MEDICARE A & B Anticipated DC Date: 06-12-2018 Planned Disposition: Inpatient Rehab External Planned Provider: [facility] DCP follow-up note: CM RECEIVED CALL FROM BEHZAD OF [facility] [facility], , PT ACCEPTED FOR REHAB TODAY, SHE HAS NOTIFIED PT'S DAUGHTER WHO WILL PROVIDE TRANSPORTATION TO [place] [facility] TODAY. PT NOTIFIED AND IN AGREEMENT WITH DISCHARGE TO REHAB TODAY, ASKED CM TO CALL HER DAUGHTER TO PICK HER UP. BEDSIDE NURSE NOTIFIED. CM CALLED EAGLE NORWOOD, , LEFT TELEPHONE [facility] OF PT'S ACCEPTANCE FOR [facility]AB AT [facility] [facility] REQUESTED TRANSPORT OF PT TO REHAB TODAY. FAX DISCHARGE INFORMATION TO [facility] AT [phone]. NURSE REPORT TO BE CALLED [facility], . DAUGHTER TO PROVIDE TRANSPORTATION TO REHAB TODAY. JENNIFER HumphreyEMENT Appended by Davy Elizondo on 06/12/2018 13:13 NAIL TECH: WATSON FAXED DISCHARGE INFORMATION TO [facility] AT [phone]. NURSE REPORT TO BE CALLED [facility], . DAUGHTER TO PROVIDE TRANSPORTATION TO REHAB TODAY. JENNIFER HumphreyEMENT DCP- Discharge Planning Updated by [email or web address]: Davy Elizondo on 06/11/18 2:[address] Patient Name: MCKENNA VILLANUEVA Encounter No: [id number] : 1940 Primary Insurance: MEDICARE A & B Anticipated DC Date: 06-11-2018 Planned Disposition: Inpatient Rehab External Planned Provider: [facility] DCP follow-up note: CM SPOKE TO [facility], THEY ARE READY TO ACCEPT PT. CM HAD PREVIOUSLY SPOKEN TO DR. MCKENNA WHO INFORMED CM THAT PT IS STABLE FOR DISCHARGE TO REHAB. CM RECEIVED NOTE TO CALL PT'S FAMILY REGARDING REHAB IN [place]. CM MET WITH PT IN ROOM WHO REPORT THAT SHE WANTS REHAB IN [place] SO SHE CAN BE CLOSE TO FAMILY AND HER DOGGIES. IMPORTANT MESSAGE FROM MEDICARE PROVIDED AND EXPLAINED. PT ASKED THAT CM CALL EAGLE, HER DAUGHTER. CM CALLED EAGLE ENMA, , WHO REQUESTED REFERRAL TO [facility]. 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 CM EXPLAINED THAT PT IS STABLE FOR DISCHARGE TODAY AND THAT PT HAD ALREADY BEEN ACCEPTED FOR REHAB AT [place]. EAGLE REPORTS SHE WANTS PT IN [place] TO BE CLOSE TO FAMILY. CM WILL SEND REFERRAL TO [facility] AND ASK FOR REHAB DETERMINATION FROM [place] SOON POSSIBLE. CM FAXED REFERRAL TO [facility] AT [phone]. [facility], , LEFT DETAILED MESSAGE FOR NADIYA NOTIFYING OF REFERRAL, THAT PT IS STABLE FOR DISCHARGE TODAY AND ASKED FOR DETERMINATION SOON POSSIBLE. CM WAITING ADMISSION DETERMINATION FROM [facility]. Davy Elizondo, JENNIFER SANDOVAL Appended by Davy Elizondo on 06/11/2018 15:04 NAIL TECH: CM RECEIVED [facility], , REFERRAL RECEIVED, CM INFORMED BEHZAD THAT PT IS STABLE FOR DISCHARGE TODAY AND ASKED FOR DETERMINATION SOON POSSIBLE. FAMILY TO PROVIDE TRANSPORTATION TO [facility] IF ACCEPTED. CM WAITING ADMISSION DETERMINATION FROM [facility]. JENNIFER Humphrey DCP- Discharge Planning Updated by [id number]: Davy Elizondo on 06/07/18 4:[address] Patient Name: MCKENNA VILLANUEVA Admission Status: ER Accout number: [id number] Admission Date: 06-04-2018 : 1940 Admission Diagnosis:NON-ST ELEVATION (NSTEMI) MYOCARDIAL INFARCTION Attending: OLIVERIO MCKENNA Current LOS: 3 Anticipated DC Date: Planned Disposition: Inpatient Rehab Primary Insurance: MEDICARE A & B PLANNED EXTERNAL PROVIDER: [facility] Discharge Planning Comments: CM RECEIVED INPATIENT REHAB PRESCREENING ORDER, MET WITH PT IN ROOM TO DISCUSS DISCHARGE PLANNING AND NEEDS. PT REPORTS LIVING AT HOME INDEPENDENTLY WITH HER ADULT DAUGHTER. PT HAS NO MEDICAL EQUIPMENT AND NO OUTSIDE SERVICES ASSISTING IN THE HOME. CM DISCUSSED AVAILABILITY OF HOME HEALTH, REHAB SERVICES AND MEDICAL EQUIPMENT. PT IS AGREEABLE TO REHAB AT [place] WITH PLAN TO DISCHARGE HOME FROM HOSPITAL REHAB; PT REPORTS HER DAUGHTER WILL PICK HER UP FOR DISCHARGE HOME. CM WAITING COMPLETION OF INPATIENT REHAB PRESCREENING AND ADMISSION DETERMINATION FROM [facility]. Broodmare Barn Groom: Davy Elizondo DCPIA - Discharge Planning Initial Assessment Updated by [email or web address]: Davy Elizondo on 06/11/18 1:30 pm * Is the patient Alert and Oriented? Yes * How many steps to enter\exit or inside your home? NONE * PCP PT REPORTS HAVING ONE, CAN'T REMEMBER NAME RIGHT NOW * Pharmacy [facility] IN [place] * Preadmission Environment Home with Family * ADLs Independent * Equipment None * Other Equipment NO MEDICAL EQUIPMENT PROVIDER PREFERENCE * List name and contact numbers for known caregivers / representatives who currently or will assist patient after discharge: URIAH NORWOOD, DAUGHTER, PHUONG HUYNH, SON, * Verbal permission to speak to the caregivers and representatives has been obtained from the patient. Yes * Community resources currently utilized None * Please name any agencies selected above. NONE * Additional services required to return to the preadmission environment? Yes * Can the patient safely return to the preadmission environment? Yes * Has this patient been hospitalized within the prior 30 days at any hospital? No Coverage Notice Reviewer: [id number] Lucia Elizondo Notice Issued Date-Time: 06/11/2018 9:40 Notice Type: IM Discharge Notice Notice Delivered To: Patient Relationship to Patient: Clinic Scheduler Name: Delivery Method: HAND - Hand Delivered [place] Days: Prior Verbal Notification: Recipient Understood Notice: Yes Recipient Signature: Yes Med Rec Note Co-signed by Attending: Coverage Notice Comment: Last DP export: 06/12/18 9:09 a Patient Name: MCKENNA VILLANUEVA Page [phone] at 1315 All edits/amendments must be made on the electronic document DICTATION DATE: 06/12/181313 SCALPER OPERATOR: DELBERT 06/12/18 1314 RPT#: [id number] DC DATE: STATUS: ADM IN [facility] [address] [place] [address] END OF REPORT
--- NOTE | ~2018-06-04 | MORECARE ---
CASE MANAGEMENT DISCHARGE SUMMARY PATIENT: MCKENNA VILLANUEVA UNIT: [id number] ADM DATE: 06/04/18 AGE: 78 : 41 SEX: F ROOM/BED: D.7307 AUTHOR: LINETTE PENA PHYSICIAN: REFERRING PHYSICIAN: LEVI MCKENNA MD DATE OF SERVICE: 06/07/18 Discharge Plan Patient Name: MCKENNA VILLANUEVA [facility] : 1940 Planned Disposition: Inpatient Rehab Anticipated Discharge Date: Discharge Date: Expected LOS: Initial Reviewer: [id number] Initial Review Date: 06/07/2018 Generated: 06/07/18 6:45 pm Patient Name: MCKENNA VILLANUEVA Keshia [phone] at 1744 All edits/amendments must be made on the electronic document DICTATION DATE: 06/07/181743 TEAM COORDINATOR: DELBERT 06/07/181743 RPT#: [id number] DC DATE: STATUS: ADM IN [facility] [address] [place] [address] END OF REPORT
--- NOTE | ~2018-06-04 | MORECARE ---
CASE MANAGEMENT DISCHARGE SUMMARY PATIENT: MCKENNA VILLANUEVA UNIT: [id number] ADM DATE: 06/04/18 AGE: 78 : 41 SEX: F ROOM/BED: D.8767 AUTHOR: BECKY,DOC PHYSICIAN: REFERRING PHYSICIAN: LEVI MCKENNA MD DATE OF SERVICE: 06/12/18 Discharge Plan Patient Name: MCKENNA VILLANUEVA Facility: [facility]:[place] : 1940 Planned Disposition: Inpatient Rehab Anticipated Discharge Date: 06/12/18 Discharge Date: Expected LOS: 8 Initial Reviewer: [email or web address] Initial Review Date: 06/07/2018 Generated: 06/12/18 11:01 am Comments DCP- Discharge Planning Updated by [email or web address]: Davy Elizondo on 06/11/18 2:[address] Patient Name: MCKENNA VILLANUEVA Encounter No: [id number] : 1940 Primary Insurance: MEDICARE A & B Anticipated DC Date: 06-11-2018 Planned Disposition: Inpatient Rehab External Planned Provider: [facility] DCP follow-up note: CM SPOKE TO BALJIT OF INPATIENT REHAB, THEY ARE READY TO ACCEPT PT. CM HAD PREVIOUSLY SPOKEN TO DR. MCKENNA WHO INFORMED CM THAT PT IS STABLE FOR DISCHARGE TO REHAB. CM RECEIVED NOTE TO CALL PT'S FAMILY REGARDING REHAB IN [place]. CM MET WITH PT IN ROOM WHO REPORT THAT SHE WANTS REHAB IN [place] SO SHE CAN BE CLOSE TO FAMILY AND HER DOGGIES. IMPORTANT MESSAGE FROM MEDICARE PROVIDED AND EXPLAINED. PT ASKED THAT CM CALL EAGLE, HER DAUGHTER. CM CALLED EAGLE ENMA, , WHO REQUESTED REFERRAL TO [facility]. 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 CM EXPLAINED THAT PT IS STABLE FOR DISCHARGE TODAY AND THAT PT HAD ALREADY BEEN ACCEPTED FOR REHAB AT [place]. EAGLE REPORTS SHE WANTS PT IN [place] TO BE CLOSE TO FAMILY. CM WILL SEND REFERRAL TO [place] INPATIENT REHAB AND ASK FOR REHAB DETERMINATION FROM [place] SOON POSSIBLE. CM FAXED REFERRAL TO [facility] AT [phone]. CM CALLED [place] INPATIENT RE[facility], , LEFT DETAILED MESSAGE FOR NADIYA NOTIFYING OF REFERRAL, THAT PT IS STABLE FOR DISCHARGE TODAY AND ASKED FOR DETERMINATION SOON POSSIBLE. CM WAITING ADMISSION DETERMINATION FROM [place] INPATIENT [facility]. Davy Elizondo, CASE MANGEMENT Appended by Davy Elizondo on 06/11/2018 15:04 COMMERCIAL COORDINATOR: CM RECEIVED CALL FROM BEHZAD OF [facility], , REFERRAL RECEIVED, CM INFORMED BEHZAD \ THAT PT IS STABLE FOR DISCHARGE TODAY AND ASKED FOR DETERMINATION SOON POSSIBLE. FAMILY TO PROVIDE TRANSPORTATION TO [facility] IF ACCEPTED. CM WAITING ADMISSION DETERMINATION FROM [facility]. JENNIFER Humphrey DCP- Discharge Planning Updated by [email or web address]: Davy Elizondo on 06/07/18 4:[address] Patient Name: MCKENNA VILLANUEVA Admission Status: ER Accout number: [id number] Admission Date: 06-04-2018 : 1940 Admission Diagnosis:NON-ST ELEVATION (NSTEMI) MYOCARDIAL INFARCTION Attending: OLIVERIO MCKENNA Current LOS: 3 Anticipated DC Date: Planned Disposition: Inpatient Rehab Primary Insurance: MEDICARE A & B PLANNED EXTERNAL PROVIDER: [facility] Discharge Planning Comments: CM RECEIVED INPATIENT REHAB PRESCREENING ORDER, MET WITH PT IN ROOM TO DISCUSS DISCHARGE PLANNING AND NEEDS. PT REPORTS LIVING AT HOME INDEPENDENTLY WITH HER ADULT DAUGHTER. PT HAS NO MEDICAL EQUIPMENT AND NO OUTSIDE SERVICES ASSISTING IN THE HOME. CM DISCUSSED AVAILABILITY OF HOME HEALTH, REHAB SERVICES AND MEDICAL EQUIPMENT. PT IS AGREEABLE TO REHAB AT [place] WITH PLAN TO DISCHARGE HOME FROM HOSPITAL REHAB; PT REPORTS HER DAUGHTER WILL PICK HER UP FOR DISCHARGE HOME. CM WAITING COMPLETION OF INPATIENT REHAB PRESCREENING AND ADMISSION DETERMINATION FROM [facility]. Customer Energy Specialist: Davy Elizondo DCPIA - Discharge Planning Initial Assessment Updated by [email or web address]: Davy Elizondo on 06/11/18 1:30 pm * Is the patient Alert and Oriented? Yes * How many steps to enter\exit or inside your home? NONE * PCP PT REPORTS HAVING ONE, CAN'T REMEMBER NAME RIGHT NOW * Pharmacy [facility] IN [place] * Preadmission Environment Home with Family * ADLs Independent * Equipment None * Other Equipment NO MEDICAL EQUIPMENT PROVIDER PREFERENCE * List name and contact numbers for known caregivers / representatives who currently or will assist patient after discharge: URIAH NORWOOD, DAUGHTER, PHUONG HUYNH, SON, * Verbal permission to speak to the caregivers and representatives has been obtained from the patient. Yes * Community resources currently utilized None * Please name any agencies selected above. NONE * Additional services required to return to the preadmission environment? Yes * Can the patient safely return to the preadmission environment? Yes * Has this patient been hospitalized within the prior 30 days at any hospital? No Coverage Notice Reviewer: [id number] Lucia Elizondo Notice Issued Date-Time: 06/11/2018 9:40 Notice Type: IM Discharge Notice Notice Delivered To: Patient Relationship to Patient: Machine Stone Polisher Name: Delivery Method: HAND - Hand Delivered Alma Days: Prior Verbal Notification: Recipient Understood Notice: Yes Recipient Signature: Yes Med Rec Note Co-signed by Attending: Coverage Notice Comment: Last DP export: 06/11/18 2:08 p Patient Name: MCKENNA VILLANUEVA Page [phone] at 1002 All edits/amendments must be made on the electronic document DICTATION DATE: 06/12/18 1001 COMPANY PILOT: DELBERT 06/12/18 1001 RPT#: [id number] DC DATE: STATUS: ADM IN [facility] [address] [place] [address] END OF REPORT
--- NOTE | ~2018-06-04 | MORECARE ---
CASE MANAGEMENT DISCHARGE SUMMARY PATIENT: MCKENNA VILLANUEVA UNIT: [id number] ADM DATE: 06/04/18 AGE: 78 : 41 SEX: F ROOM/BED: D.2117 AUTHOR: BECKY,DOC PHYSICIAN: REFERRING PHYSICIAN: LEVI MCKENNA MD DATE OF SERVICE: 06/11/18 Discharge Plan Patient Name: MCKENNA VILLANUEVA [facility] : 1940 Planned Disposition: Inpatient Rehab Anticipated Discharge Date: 06/11/18 Discharge Date: Expected LOS: 7 Initial Reviewer: [id number] Initial Review Date: 06/07/2018 Generated: 06/11/18 2:04 pm Comments DCP- Discharge Planning Updated by [email or web address]: Davy Elizondo on 06/07/18 4:[address] Patient Name: MCKENNA VILLANUEVA Admission Status: ER Accout number: [id number] Admission Date: 06-04-2018 : 1940 Admission Diagnosis:NON-ST ELEVATION (NSTEMI) MYOCARDIAL INFARCTION Attending: OLIVERIO MCKENNA Current LOS: 3 Anticipated DC Date: Planned Disposition: Inpatient Rehab Primary Insurance: MEDICARE A & B PLANNED EXTERNAL PROVIDER: [facility] Discharge Planning Comments: CM RECEIVED INPATIENT REHAB PRESCREENING ORDER, MET WITH PT IN ROOM TO DISCUSS DISCHARGE PLANNING AND NEEDS. PT REPORTS LIVING AT HOME INDEPENDENTLY WITH HER ADULT DAUGHTER. PT HAS NO MEDICAL EQUIPMENT AND NO OUTSIDE SERVICES ASSISTING IN THE HOME. CM DISCUSSED AVAILABILITY OF HOME HEALTH, REHAB SERVICES AND MEDICAL EQUIPMENT. PT IS AGREEABLE TO REHAB AT [place] WITH PLAN TO DISCHARGE HOME FROM HOSPITAL REHAB; PT REPORTS HER DAUGHTER WILL PICK HER UP FOR DISCHARGE HOME. CM WAITING COMPLETION OF INPATIENT REHAB PRESCREENING AND ADMISSION DETERMINATION FROM [facility]. Apparel Merchandiser: Davy Elizondo DCPIA - Discharge Planning Initial Assessment Updated by [email or web address]: Davy Elizondo on 06/07/18 5:45 pm * Is the patient Alert and Oriented? Yes * How many steps to enter\exit or inside your home? NONE * PCP PT REPORTS HAVING ONE, CAN'T REMEMBER NAME RIGHT NOW * Pharmacy [facility] IN [place] * Preadmission Environment Home with Family * ADLs Independent * Equipment None * Other Equipment NO MEDICAL EQUIPMENT PROVIDER PREFERENCE * List name and contact numbers for known caregivers / representatives who currently or will assist patient after discharge: URIAH NORWOOD, DAUGHTER, (PT NOT ABLE TO CONFIRM THIS NUMBER BY MEMORY) * Verbal permission to speak to the caregivers and representatives has been obtained from the patient. Yes * Community resources currently utilized None * Please name any agencies selected above. NONE * Additional services required to return to the preadmission environment? Yes * Can the patient safely return to the preadmission environment? Yes * Has this patient been hospitalized within the prior 30 days at any hospital? No External Providers External Provider: OTHER-OTHER Next Contact Date: 06/11/2018 Service Request Date: Service Type: Resolution: Reviewer: Comments: Last DP export: 06/07/18 4:53 Patient Name: MCKENNA VILLANUEVA Page [phone] at 1304 All edits/amendments must be made on the electronic document DICTATION DATE: 06/11/18 1303 SHOE CLERK: DELBERT 06/11/18 1303 RPT#: [id number] DC DATE: STATUS: ADM IN [facility] [address] [place] [address] END OF REPORT
[2018-06-05] VITALS (17 sets, daily range): BP systolic 110–150; BP diastolic 57–69
[2018-06-05 08:27] LABS: BASOPHILS 0.2 % (0-2); EOSINOPHILS 3.6 % (0-7); HEMATOCRIT 33.7 % (36.0-48.0); HEMOGLOBIN 10.9 g/dL (12-16); IMMATURE GRANULOCYTES 0.2 % (0-5); LYMPHOCYTES 19.9 % (15-50); MCH 29.5 pg (26.0-34.0); MCHC 32.3 g/dL (31.0-37.0); MCV 91.1 fL (80.0-100.0); MEAN PLATELET VOLUME 9.5 fL (7.4-10.4); MONOCYTES 8.7 % (2-11); NEUTROPHILS 67.4 % (40-80); PLATELET COUNT 227 10x3/uL (130-400); RDW 15.6 % (11.5-14.5); WBC 10.5 10x3/uL (4.8-10.8)
[2018-06-05 08:41] LABS: ALBUMIN 2.7 g/dL (3.4-5.0); ANION GAP 11.6 mmol/L (8-16); BILIRUBIN - TOTAL 0.4 mg/dL (0.2-1.3); CALCIUM 8.5 mg/dL (8.5-10.1); CARBON DIOXIDE 27.2 mmol/L (21.0-32.0); CREATININE - SERUM 0.8 mg/dL (0.6-1.3); PROTEIN - SERUM 6.3 g/dL (6.4-8.2)
[2018-06-05 08:43] LABS: POTASSIUM - SERUM 2.8 mmol/L (3.5-5.1)
[2018-06-05 15:30] LABS: UDS - AMPHET NEGATIVE QUAL (NEGATIVE); UDS - BARB NEGATIVE QUAL (NEGATIVE); UDS - BENZO POSITIVE QUAL (NEGATIVE); UDS - COCAINE NEGATIVE QUAL (NEGATIVE); UDS - OPIATE POSITIVE QUAL (NEGATIVE); UDS - PCP NEGATIVE QUAL (NEGATIVE); UDS - THC NEGATIVE QUAL (NEGATIVE)
[2018-06-06] VITALS (9 sets, daily range): BP systolic 124–172; BP diastolic 65–81; Ht 167.6 cm; Wt 62.2 kg
[2018-06-06 11:16] LABS: CALC OSMOLALITY 301 mosm/kg (275-300); CALCIUM 8.4 mg/dL (8.5-10.1); CARBON DIOXIDE 24.5 mmol/L (21.0-32.0); CHLORIDE - SERUM 113 mmol/L (98-107); CREATININE - SERUM 0.7 mg/dL (0.6-1.3); GLUCOSE 87 mg/dL (74-106); POTASSIUM - SERUM 3.2 mmol/L (3.5-5.1); SODIUM 151 mmol/L (136-145); UREA NITROGEN 21 mg/dL (7-18); eGFR NON AFRICAN AMERICAN 86 mL/min (90-120)
[2018-06-07 03:55] VITALS: BP 157/84
[2018-06-07 07:37] VITALS: BP 139/65
[2018-06-07 08:09] VITALS: BP 150/75
[2018-06-07 12:58] VITALS: BP 146/65
[2018-06-07 17:41] VITALS: BP 142/77
[2018-06-07 20:00] VITALS: BP 147/48
[2018-06-08 04:00] VITALS: BP 116/68
[2018-06-08 09:56] VITALS: BP 126/57
[2018-06-08 16:17] VITALS: BP 135/66
[2018-06-08 20:30] VITALS: BP 154/79
[2018-06-09 04:30] VITALS: BP 138/73
[2018-06-09 09:33] VITALS: BP 124/61
[2018-06-09 12:58] VITALS: BP 111/87
[2018-06-09 17:09] VITALS: BP 125/68
[2018-06-09 20:30] VITALS: BP 154/78
[2018-06-10 08:54] VITALS: BP 140/72
[2018-06-10] MEDS ORDERED: SINEMET 25-2501 EACH PO (10:25)
[2018-06-10] MEDS ORDERED: BENZTROPINE MESY1 MG PO (10:26)
[2018-06-10] MEDS ORDERED: VALIUM10 MG PO (10:26)
[2018-06-10] MEDS ORDERED: FUROSEMIDE40 MG PO (10:27)
[2018-06-10] MEDS ORDERED: LEVOTHYROXINE125 MCG PO (10:27)
[2018-06-10] MEDS ORDERED: XALATAN 0.0052.5 ML EACH EYE (10:28)
[2018-06-10] MEDS ORDERED: COREG6.25 MG PO (10:29)
[2018-06-10] MEDS ORDERED: TEGRETOL XR200 M1 PO (10:29)
[2018-06-10] MEDS ORDERED: REQUIP1 MG PO (10:30)
[2018-06-10] MEDS ORDERED: LYRICA300 MG PO (10:31)
[2018-06-10] MEDS ORDERED: PROTONIX40 MG PO (10:32)
[2018-06-10] MEDS ORDERED: PATADAY2.5 ML EACH EYE (10:33)
[2018-06-10] MEDS ORDERED: ZOLOFT100 MG PO (10:34)
[2018-06-10] MEDS ORDERED: DILAUDID4 MG PO (10:35)
[2018-06-10 14:01] LABS: ALBUMIN 3.2 g/dL (3.4-5.0); ANION GAP 12.2 mmol/L (8-16); BILIRUBIN - TOTAL 0.47 mg/dL (0.2-1.3); CALCIUM 8.7 mg/dL (8.5-10.1); CARBON DIOXIDE 28.1 mmol/L (21.0-32.0); POTASSIUM - SERUM 3.3 mmol/L (3.5-5.1); PROTEIN - SERUM 6.3 g/dL (6.4-8.2)
[2018-06-10 22:11] VITALS: BP 108/49
[2018-06-11 01:13] VITALS: BP 114/69
[2018-06-11 05:18] VITALS: BP 160/59
[2018-06-11 08:22] LABS: ANION GAP 15.9 mmol/L (8-16); CALCIUM 8.9 mg/dL (8.5-10.1); CARBON DIOXIDE 24.2 mmol/L (21.0-32.0); CREATININE - SERUM 0.9 mg/dL (0.6-1.3); POTASSIUM - SERUM 3.1 mmol/L (3.5-5.1)
[2018-06-11 09:33] VITALS: BP 130/51
[2018-06-11 11:36] VITALS: BP 106/51
[2018-06-11 21:07] VITALS: BP 115/62
[2018-06-12 00:35] VITALS: BP 152/71
[2018-06-12 06:08] VITALS: BP 153/72
[2018-06-12 08:48] VITALS: BP 139/71
[2018-06-12] MEDS ORDERED: AMIODARONE HCL200 MG PO (11:12)
== END 2018-06-12 15:06 | DRG 280 ==
LOC: D.ER 17:18 → D.CATH 17:18 → EDSTATUS 17:33 → D.CVICU 17:59 → D.CATH 18:15 → D.M2 18:16 → D.CVICU 18:16 → D.M2 06-05 11:48
PROVIDERS: Internal Medicine Interventional Cardiology
PROC: B2151ZZ Fluoroscopy of Left Heart using Low Osmolar Contrast (ICD-10-PCS; 2018-06-04)
PROC: 4A023N7 Measurement of Cardiac Sampling and Pressure, Left Heart, Percutaneous Approach (ICD-10-PCS; 2018-06-04)
PROC: B2111ZZ Fluoroscopy of Multiple Coronary Arteries using Low Osmolar Contrast (ICD-10-PCS; principal; 2018-06-04 17:40)
DX: I21.4 Non-ST elevation (NSTEMI) myocardial infarction (principal); R40.2223 Coma scale, best verbal response, incomprehensible words, at hospital admission; I48.91 Unspecified atrial fibrillation; R40.2353 Coma scale, best motor response, localizes pain, at hospital admission; R40.2143 Coma scale, eyes open, spontaneous, at hospital admission; I24.8 Other forms of acute ischemic heart disease; T40.601A Poisoning by unspecified narcotics, accidental (unintentional), initial encounter; T42.4X1A Poisoning by benzodiazepines, accidental (unintentional), initial encounter

== ENCOUNTER 2018-07-04 16:34 | Inpatient (IN) | payer MEDICARE ==
[~2018-07-04] VITALS: Ht 167.6 cm; Wt 63.5 kg
--- NOTE | ~2018-07-04 | OP ---
PATIENT NAME: MCKENNA VILLANUEVA MEDICAL RECORD: [id number] :[birth year] LOCATION:D.[facility] [id number] ADMISSION DATE:07/04/18 SURGEON: LESA GUALLPA MD DATE OF OPERATION: 07/06/2018 PREOPERATIVE DIAGNOSIS: Bimalleolar ankle fracture of the right ankle. POSTOPERATIVE DIAGNOSIS: Bimalleolar ankle fracture of the right ankle. PROCEDURE: Open reduction and internal fixation of right bimalleolar ankle fracture. SURGEON: Lesa Guallpa MD AESTHESIA: Walker. INTRAOPERATIVE COMPLICATIONS: None. SUMMARY OF PATHOLOGIC FINDINGS: The patient was indeed found to have a displaced bimalleolar ankle fracture consistent with preoperative radiographs. OPERATIVE SUMMARY IN DETAIL: After obtaining the appropriate preoperative orthopedic surgery consent as well as anesthetic consultation, evaluation, and clearance, the patient was brought to the operating room and placed on the operating table in the supine position. After general laryngeal mask airway was administered, tourniquet was placed about the proximal aspect of the right lower extremity. The right lower extremity was then prepped and draped in routine sterile fashion. The leg was elevated, exsanguinated, and the tourniquet was inflated to 350 mmHg. Under fluoroscopic guidance, a linear incision was made down the shaft of the fibula. This was then taken down to the periosteum. The fracture was identified. Fracture hematoma was removed, curettaged, and irrigation. Fracture was reduced and held reduced with reduction forceps. The plate was then applied under fluoroscopy and then serial and sequential drill and fill with combination of both compression and locking screws were utilized to produce an anatomic synagogue of the fibula. At this point, attention was turned to the medial malleolus. Under direct fluoroscopic guidance, guide pin for the cannulated compression screw was placed in the tip of the inferior colliculus of the medial malleolus. This was then placed across it and placed across the fracture. A 38-mm compression screw was then placed under fluoroscopic guidance, resulting in anatomic synagogue of the medial malleolus. Having completed this, wounds were copiously irrigated and closed in usual fashion. Sterile dressings were applied. Tourniquet was deflated. Posterior L&U splint was applied. The patient was awakened and taken to the recovery in stable condition. All final needle and sponge counts were correct. TRANSINT:[id number] Voice Confirmation ID: [id number] DOCUMENT ID: [id number] 07/08/18 Edited to correct date of service, dmm. OPERATIVE REPORT [id number] PAGE,MCKENNA GUALLPA MD, LESA DENG CC: [id number] DICTATION DATE: 07/06/18 1222 NETWORK LEAD: 07/06/18 1905 ADM IN [facility] [address] [place] [address]
[~2018-07-04 16:34] MED LIST: AMIODARONE HCL200 MG PO; BENZTROPINE MESY1 MG PO; COREG6.25 MG PO; DILAUDID4 MG PO; FUROSEMIDE40 MG PO; LEVOTHYROXINE125 MCG PO; LYRICA300 MG PO; PATADAY2.5 ML EACH EYE; PROTONIX40 MG PO; REQUIP1 MG PO; SINEMET 25-2501 EACH PO; TEGRETOL XR200 M1 PO; VALIUM10 MG PO; XALATAN 0.0052.5 ML EACH EYE; ZOLOFT100 MG PO
[2018-07-04 17:46] VITALS: BP 112/62; BMI 22.6
[2018-07-04 19:43] LABS: BASOPHILS 0.3 % (0-2); EOSINOPHILS 8.1 % (0-7); HEMATOCRIT 34.1 % (36.0-48.0); HEMOGLOBIN 10.8 g/dL (12-16); IMMATURE GRANULOCYTES 0.2 % (0-5); LYMPHOCYTES 37.7 % (15-50); MCH 30.3 pg (26.0-34.0); MCHC 31.7 g/dL (31.0-37.0); MCV 95.5 fL (80.0-100.0); MEAN PLATELET VOLUME 8.8 fL (7.4-10.4); MONOCYTES 8.6 % (2-11); NEUTROPHILS 45.1 % (40-80); PLATELET COUNT 265 10x3/uL (130-400); RBC 3.57 10x6/uL (4.00-5.40); RDW 16.2 % (11.5-14.5); WBC 6.3 10x3/uL (4.8-10.8)
[2018-07-04 20:12] LABS: ALKALINE PHOSPHATASE 75 U/L (46-116); ALT (SGPT) 12 U/L (10-68); CALC OSMOLALITY 271 mosm/kg (275-300); CALCIUM 8.4 mg/dL (8.5-10.1); CARBON DIOXIDE 29.5 mmol/L (21.0-32.0); CHLORIDE - SERUM 101 mmol/L (98-107); CREATININE - SERUM 0.7 mg/dL (0.6-1.3); GLUCOSE 85 mg/dL (74-106); POTASSIUM - SERUM 5.4 mmol/L (3.5-5.1); SODIUM 137 mmol/L (136-145); UREA NITROGEN 11 mg/dL (7-18); eGFR NON AFRICAN AMERICAN 86 mL/min (90-120)
--- NOTE | 2018-07-04 22:45 | NUR ---
EYES CLOSED RESPIRATINS WITH EASE AND UNLABORED. SR UP X2 CALL LIGHT WITHIN REACH.
--- NOTE | 2018-07-05 03:02 | NUR ---
COMPLAINTS OF PAIN 9/10 TO RIGHT ANKLE. SKIN INTACT, SWOLLEN AND CLOSED WOUND. DENIES KNOWLEDGE OF HOME MEDICATION, STATES "EAGLE GIVES ME MY MEDS, SHE KNOWS.... SHE'S MY DAUGHTER."
--- NOTE | 2018-07-05 03:07 | NUR ---
LARGE, BROWN, FORMED STOOL. STATES SHE HAS BEEN CONSTIPATED FOR, "A WHILE NOW."
[2018-07-05 04:34] VITALS: BP 160/74
[2018-07-05 08:51] VITALS: BP 135/45; BP 140/78
[2018-07-05 10:33] LABS: ALBUMIN 2.9 g/dL (3.4-5.0); ALKALINE PHOSPHATASE 74 U/L (46-116); ALT (SGPT) 15 U/L (10-68); BILIRUBIN - TOTAL 0.35 mg/dL (0.2-1.3); CALC OSMOLALITY 279 mosm/kg (275-300); CALCIUM 8.9 mg/dL (8.5-10.1); CARBON DIOXIDE 28.3 mmol/L (21.0-32.0); CHLORIDE - SERUM 106 mmol/L (98-107); CREATININE - SERUM 0.7 mg/dL (0.6-1.3); GLUCOSE 93 mg/dL (74-106); PROTEIN - SERUM 6.3 g/dL (6.4-8.2); SODIUM 141 mmol/L (136-145); UREA NITROGEN 10 mg/dL (7-18); eGFR NON AFRICAN AMERICAN 86 mL/min (90-120)
[2018-07-05 10:42] LABS: POTASSIUM - SERUM 4.5 mmol/L (3.5-5.1)
[2018-07-05 10:56] LABS: BASOPHILS 0.6 % (0-2); EOSINOPHILS 7.1 % (0-7); HEMOGLOBIN 10.5 g/dL (12-16); IMMATURE GRANULOCYTES 0.2 % (0-5); MCH 30.2 pg (26.0-34.0); MCHC 31.8 g/dL (31.0-37.0); MCV 94.8 fL (80.0-100.0); MEAN PLATELET VOLUME 9.4 fL (7.4-10.4); MONOCYTES 9.7 % (2-11); NEUTROPHILS 52.4 % (40-80); PLATELET COUNT 250 10x3/uL (130-400); RBC 3.48 10x6/uL (4.00-5.40); RDW 16.3 % (11.5-14.5); WBC 5.2 10x3/uL (4.8-10.8)
--- NOTE | 2018-07-05 11:21 | NUR ---
PT IS CONFUSED, CONTINUES TO CLIMB OUT OF BED EVEN WITH BOOT ON RT ANKLE. BED IN LOW POSITION, CL IN REACH ALL FALL PRECAUTIONS IN PLACE, CONTINUE WITH PLAN OF CARE
[2018-07-05 13:04] VITALS: Ht 167.6 cm; Wt 63.5 kg
--- NOTE | 2018-07-05 13:07 | NUR ---
PT CONTINUES TO CLIMB OUT OF BED EVEN WITH ALARM ON, PT STATES SHE HAS TO GO TO RESTROOM, HVAING TO STAY IN PT'S ROOM TO CHART
[2018-07-05 13:21] LABS: APTT 33.5 SECONDS (22.8-39.4); INR 1.39 (0.85-1.17); PROTIME 16.5 SECONDS (11.6-15.0)
[2018-07-05 15:59] VITALS: BP 131/63
--- NOTE | 2018-07-05 19:32 | NUR ---
CONTINUOUS IMPROVEMENT COORDINATOR COMPLETE. PT LYING IN BED WITH NO SIGNS OF DISTRESS. WILL CONTINUE TO MONITOR PT
[2018-07-05 20:00] VITALS: BP 143/50
[2018-07-06] VITALS: BP 125/57
[2018-07-06 03:11] LABS: APPEARANCE CLEAR (CLEAR); BILIRUBIN NEGATIVE (NEGATIVE); COLOR YELLOW (YELLOW); GLUCOSE NEGATIVE (NEGATIVE); KETONE SMALL mg/dL (NEGATIVE); NITRITE NEGATIVE (NEGATIVE); PROTEIN NEGATIVE (NEGATIVE); UROBILINOGEN NORMAL (NORMAL)
[2018-07-06 04:00] VITALS: BP 118/74
--- NOTE | 2018-07-06 05:51 | NUR ---
A/OX4. BOOT ON RT FOOT. NO NEEDS AT THIS TIME.
[2018-07-06 07:08] LABS: BASOPHILS 0.4 % (0-2); EOSINOPHILS 7.7 % (0-7); HEMATOCRIT 30.5 % (36.0-48.0); HEMOGLOBIN 9.5 g/dL (12-16); MCHC 31.1 g/dL (31.0-37.0); MCV 96.2 fL (80.0-100.0); MONOCYTES 11.9 % (2-11); PLATELET COUNT 265 10x3/uL (130-400); RBC 3.17 10x6/uL (4.00-5.40); RDW 16.2 % (11.5-14.5); WBC 4.8 10x3/uL (4.8-10.8)
[2018-07-06 07:29] LABS: ALBUMIN 2.7 g/dL (3.4-5.0); ALKALINE PHOSPHATASE 66 U/L (46-116); BILIRUBIN - TOTAL 0.28 mg/dL (0.2-1.3); CALC OSMOLALITY 277 mosm/kg (275-300); CALCIUM 8.4 mg/dL (8.5-10.1); CARBON DIOXIDE 27.3 mmol/L (21.0-32.0); CHLORIDE - SERUM 106 mmol/L (98-107); CREATININE - SERUM 0.7 mg/dL (0.6-1.3); GLUCOSE 83 mg/dL (74-106); POTASSIUM - SERUM 3.9 mmol/L (3.5-5.1); SODIUM 141 mmol/L (136-145); UREA NITROGEN 8 mg/dL (7-18); eGFR NON AFRICAN AMERICAN 86 mL/min (90-120)
[2018-07-06 07:30] LABS: ALT (SGPT) 9 U/L (10-68)
--- NOTE | 2018-07-06 08:45 | NUR ---
PATIENT AWAKE AND UPSET STATING THAT HER ROLLEX WATCH HAS BEEN STOLEN. SHE STATED SHE HAD IT ON LAST NIGHT AND WHEN SHE WOKE UP IT WASNT THERE. NOTIFIED SECURITY. SECURITY TO SPEAK TO PATIENT.
--- NOTE | 2018-07-06 09:00 | NUR ---
TRIED TO CALL [facility] EMERGENCY CONTACT TO NOTIFY ABOUT WATCH AND SURGERY. NO ANSWER AT THIS TIME. VOICE MAIL LEFT.
[2018-07-06 09:41] VITALS: BP 127/100
--- NOTE | 2018-07-06 09:45 | NUR ---
TRIED TO PREOP PATIENT. UNABLE TO START NEW IV. OTHER IV REMOVED DUE TO BEING HARD AND RED AT THE SITE. CATH TIP INTACT. GAVE ORAL ROBINAL. NOTIFIED OR TEAM. STATED THEY WOULD PUT IN WHEN OVER THERE.
--- NOTE | 2018-07-06 10:56 | NUR ---
PATIENT IN SURGERY
--- NOTE | 2018-07-06 12:42 | NUR ---
REDNESS NOTED TO B/L EYELIDS AND UPPER CHEEKS; APPEARS TO BE FROM EYE PRESERVATION DURING PROCEDURE.
--- NOTE | 2018-07-06 14:24 | NUR ---
PATIENT IN BED WITH IV INTACT. NO COMPLAINTS OR SIGNS OF DISTRESS. LLE WITH SCD ON AND WORKING. RLE WITH ACD WRAP AND CAST ON. EYES OPEN WITH NO COMPLAINTS AT THIS TIME. CALL LIGHT WITHIN REACH.
--- NOTE | 2018-07-06 15:00 | NUR ---
PATIENT EMERGENCY CONTACT CALLED AT THIS TIME. STATED PATIENTS SON HAS PATIENTS WATCH. NOTIFIED PATIENT AND RN SOCIAL WORK. PATIENT IN BED WITH IV INTACT. VS STABLE. NO COMPLAINTS. CALL LIGHT WITHIN REACH.
[2018-07-06 17:32] VITALS: BP 116/60
--- NOTE | 2018-07-06 18:31 | NUR ---
PATIENT IN BED WITH IV INTACT. NO COMPLAINTS OR SIGNS OF DISTRESS. FEELING BETTER THAN EARLIER. SCD ON LLE. BA ON. CALL LIGHT WITHIN REACH.
[2018-07-06 20:00] VITALS: BP 104/59
[2018-07-07] VITALS: BP 102/46
--- NOTE | 2018-07-07 01:41 | NUR ---
RN NOTE: PT RESTING IN SUPINE POSITION WITH RIGHT FOOT ELEVATED. RIGHT IJ PATENT WITH LR INFUSING AT 100 ML / HR. SCD IN PLACE ON LLE. JOHN PAUL ALARM IN USE. WILL CONTINUE TO MONITOR FOR NEEDS.
[2018-07-07 04:00] VITALS: BP 105/60
--- NOTE | 2018-07-07 06:41 | NUR ---
EAGLE GIBBS, NURSE AT [facility] WHITE WORK CLEANER, WANTS PT ADMITTED TO [facility] SOON POSSIBLE, SHE WILL BE TRYING TO REACH CM TODAY
[2018-07-07 06:47] LABS: BASOPHILS 0.3 % (0-2); HEMOGLOBIN 9.1 g/dL (12-16); IMMATURE GRANULOCYTES 0.2 % (0-5); LYMPHOCYTES 40.8 % (15-50); MCHC 31.4 g/dL (31.0-37.0); MCV 95.7 fL (80.0-100.0); MEAN PLATELET VOLUME 9.2 fL (7.4-10.4); MONOCYTES 10.7 % (2-11); PLATELET COUNT 271 10x3/uL (130-400); RBC 3.03 10x6/uL (4.00-5.40); RDW 16.1 % (11.5-14.5); WBC 6.5 10x3/uL (4.8-10.8)
[2018-07-07 07:10] LABS: ALBUMIN 2.6 g/dL (3.4-5.0); ALKALINE PHOSPHATASE 59 U/L (46-116); BILIRUBIN - TOTAL 0.23 mg/dL (0.2-1.3); CALC OSMOLALITY 278 mosm/kg (275-300); CALCIUM 7.9 mg/dL (8.5-10.1); CARBON DIOXIDE 25.4 mmol/L (21.0-32.0); CHLORIDE - SERUM 108 mmol/L (98-107); CREATININE - SERUM 0.7 mg/dL (0.6-1.3); GLUCOSE 90 mg/dL (74-106); POTASSIUM - SERUM 3.7 mmol/L (3.5-5.1); PROTEIN - SERUM 5.5 g/dL (6.4-8.2); SODIUM 141 mmol/L (136-145); UREA NITROGEN 7 mg/dL (7-18); eGFR NON AFRICAN AMERICAN 86 mL/min (90-120)
[2018-07-07 07:14] LABS: ALT (SGPT) 5 U/L (10-68)
--- NOTE | 2018-07-07 07:30 | NUR ---
PATIENT IN BED WITH IV INTACT. DRESSING TO RLE CDI. ELEVATED LEG ON PILLOW. REFUSES ICE PACK. STATED TOO COLD. ABLE TO MOVE TOES, FOOT WARM WITH NO PROBLEMS. PATIENT ASSISTED TO BP. CALL LIGHT WITHIN REACH.
[2018-07-07 09:24] VITALS: BP 145/58
--- NOTE | 2018-07-07 11:54 | MORECARE ---
CASE MANAGEMENT DISCHARGE SUMMARY PATIENT: MCKENNA VILLANUEVA UNIT: [id number] ADM DATE: 07/04/18 AGE: 78 : 41 SEX: F ROOM/BED: D.2213 AUTHOR: LINETTE PENA PHYSICIAN: REFERRING PHYSICIAN: JOSELYN DEVRIES MD DATE OF SERVICE: 07/07/18 Discharge Plan Patient Name: MCKENNA VILLANUEVA [facility] [facility] 1940 Planned Disposition: Inpatient Rehab Facility Anticipated Discharge Date: Discharge Date: Expected LOS: Initial Reviewer: [email or web address] Initial Review Date: 07/04/2018 Generated: 07/07/18 12:54 pm Patient Name: MCKENNA VILLANUEVA Keshia 11145 at 1154 All edits/amendments must be made on the electronic document DICTATION DATE: 07/07/18 1154 TRAVEL PROFESSIONAL: DELBERT 07/07/18 1154 RPT#: [id number] DC DATE: STATUS: ADM IN [facility] [address] [place] [address] END OF REPORT
--- NOTE | 2018-07-07 12:01 | MORECARE ---
CASE MANAGEMENT DISCHARGE SUMMARY PATIENT: MCKENNA VILLANUEVA UNIT: [id number] ADM DATE: 07/04/18 AGE: 78 : 41 SEX: F ROOM/BED: D.2213 AUTHOR: LINETTE PENA PHYSICIAN: REFERRING PHYSICIAN: JOSELYN DEVRIES MD DATE OF SERVICE: 07/07/18 Discharge Plan Patient Name: MCKENNA VILLANUEVA [facility] : 1940 Planned Disposition: Inpatient Rehab Facility Anticipated Discharge Date: Discharge Date: Expected LOS: Initial Reviewer: [email or web address] Initial Review Date: 07/04/2018 Generated: 07/07/18 1:00 pm Comments DCP- Discharge Planning Updated by [email or web address]: Emerita Palmer on 07/07/18 10:[address] LATE ENTRY 8868- 2155 CM NOTIFIED BY NURSING STAFF THAT PATIENT' S FAMILY WANTS [facility]. THE FAMILY WANTS TRANSFER TODAY. DR GUALLPA ADVISED THE PATIENT IS READY FOR TRANSFER TO REHAB TODAY. TC TO [facility]. CM SPOKE W/ COLT. FAXED CLINICAL FOR REVIEW BY RADIOLOGY ASST AND THE CUSTOMER GREETER. COLT STATES THE PATIENT WILL NOT BE TRANSFERED TODAY. THE CLINICAL WILL BE REVIWED IN THE AM. AWAIT DETERMINATION. CONTACT PHONE NUMBER [phone] EXT [phone] FAX NUMBER [phone] ATT BEHZAD Hui DP export: 07/07/18 10:54 Patient Name: MCKENNA VILLANUEVA Page [phone] at 1201 All edits/amendments must be made on the electronic document DICTATION DATE: 07/07/18 1200 EDUCATION AND OUTREACH COORDINATOR: DELBERT 07/07/18 1200 RPT#: [id number] DC DATE: STATUS: ADM IN [facility] [address] [place] [address] END OF REPORT
--- NOTE | 2018-07-07 12:15 | NUR ---
PATIENT SITTING UP IN BED EATING. IV INTACT. CALL LIGTH WITHIN REACH.
[2018-07-07 13:06] VITALS: BP 140/82
--- NOTE | 2018-07-07 14:51 | NUR ---
PATIENT IN BED WITH EYES CLOSED RESTING. IV INTACT. SCD ON LLE. RLE ELEVATED ON PILLOW. CALL LIGHT WITHIN REACH.
[2018-07-07 17:18] VITALS: BP 112/59
--- NOTE | 2018-07-07 17:45 | NUR ---
PATIENT IN BED WITH IV ITNACT. NO COMPLAINTS OR SIGNS OF DISTRESS. SITTING UP IN BED EATING. DRESSING TO LLE CDI. CALL LIGHT WITHNR EACH.
[2018-07-07 20:00] VITALS: BP 126/67
[2018-07-08] VITALS: BP 139/66
[2018-07-08 04:00] VITALS: BP 138/73
--- NOTE | 2018-07-08 04:10 | NUR ---
PATIONT IN BED ASLEEP WITH TV ON. NO S/S OF DISTRESS RESPRATIONS EVEN AND UNLABORED CALL LIGHT IN REACH.
[2018-07-08 06:38] LABS: BASOPHILS 0.4 % (0-2); EOSINOPHILS 3.4 % (0-7); IMMATURE GRANULOCYTES 0.2 % (0-5); LYMPHOCYTES 23.3 % (15-50); MCH 30.7 pg (26.0-34.0); MCHC 32.3 g/dL (31.0-37.0); MCV 95.1 fL (80.0-100.0); MEAN PLATELET VOLUME 10.6 fL (7.4-10.4); MONOCYTES 13.7 % (2-11); RBC 3.26 10x6/uL (4.00-5.40); RDW 15.4 % (11.5-14.5)
[2018-07-08 06:44] LABS: PLATELET COUNT 408 10x3/uL (130-400); WBC 8.9 10x3/uL (4.8-10.8)
[2018-07-08 06:45] LABS: ALKALINE PHOSPHATASE 54 U/L (46-116); ALT (SGPT) 6 U/L (10-68); BILIRUBIN - TOTAL 0.22 mg/dL (0.2-1.3); CALCIUM 8.6 mg/dL (8.5-10.1); CARBON DIOXIDE 28.2 mmol/L (21.0-32.0); CHLORIDE - SERUM 107 mmol/L (98-107); GLUCOSE 81 mg/dL (74-106); POTASSIUM - SERUM 3.3 mmol/L (3.5-5.1); PROTEIN - SERUM 6.3 g/dL (6.4-8.2); SODIUM 142 mmol/L (136-145)
[2018-07-08 06:46] LABS: CALC OSMOLALITY 278 mosm/kg (275-300); UREA NITROGEN 4 mg/dL (7-18)
[2018-07-08 06:47] LABS: CREATININE - SERUM 0.5 mg/dL (0.6-1.3); eGFR NON AFRICAN AMERICAN > 90 mL/min (90-120)
--- NOTE | 2018-07-08 09:10 | MORECARE ---
CASE MANAGEMENT DISCHARGE SUMMARY PATIENT: MCKENNA VILLANUEVA UNIT: [id number] ADM DATE: 07/04/18 AGE: 78 : 41 SEX: F ROOM/BED: D.2213 AUTHOR: LINETTE PENA PHYSICIAN: REFERRING PHYSICIAN: JOSELYN DEVRIES MD DATE OF SERVICE: 07/08/18 Discharge Plan Patient Name: MCKENNA VILLANUEVA Facility: [facility] : 1940 Planned Disposition: Inpatient Rehab Facility Anticipated Discharge Date: Discharge Date: Expected LOS: Initial Reviewer: [email or web address] Initial Review Date: 07/04/2018 Generated: 07/08/18 10:10 am Comments DCP- Discharge Planning Updated by [email or web address]: Letty Vizcaino on 07/08/18 8:[address] [facility] and procedure note fax[facility] per request. She states they still need to review clinical and will call when accepted. CM will continue to follow and assist with discharge planning/needs. DCP- Discharge Planning Updated by [email or web address]: Emerita Palmer on 07/07/18 10:[address] LATE ENTRY 5416- 1842 CM NOTIFIED BY NURSING STAFF THAT PATIENT' S FAMILY WANTS [facility]. THE FAMILY WANTS TRANSFER TODAY. DR GUALLPA ADVISED THE PATIENT IS READY FOR TRANSFER TO REHAB TODAY. TC TO [facility]. CM SPOKE W/ COLT. FAXED CLINICAL FOR REVIEW BY TOOL PROGRAMMER AND THE CHILDCARE ADMINISTRATOR. COLT STATES THE PATIENT WILL NOT BE TRANSFERED TODAY. THE CLINICAL WILL BE REVIWED IN THE AM. AWAIT DETERMINATION. CONTACT PHONE NUMBER [phone] EXT [phone] FAX NUMBER [phone] ATT BEHZAD External Providers External Provider: OTHER-OTHER Next Contact Date: Service Request Date: Service Type: Resolution: Reviewer: Comments: Last DP export: 07/07/18 11:00 Patient Name: MCKENNA VILLANUEVA Page [phone] at 0910 All edits/amendments must be made on the electronic document DICTATION DATE: 12/31/18 0910 SENIOR MATERIALS SCIENTIST: DM 07/08/18909 RPT#: [id number] DC DATE: STATUS: ADM IN [facility] [address] [place] [address] END OF REPORT
[2018-07-08 09:21] VITALS: BP 132/67
--- NOTE | 2018-07-08 11:23 | MORECARE ---
CASE MANAGEMENT DISCHARGE SUMMARY PATIENT: MCKENNA VILLANUEVA UNIT: [id number] ADM DATE: 07/04/18 AGE: 78 : 41 SEX: F ROOM/BED: D.2213 AUTHOR: BECKY,DOC PHYSICIAN: REFERRING PHYSICIAN: JOSELYN DEVRIES MD DATE OF SERVICE: 07/08/18 Discharge Plan Patient Name: MCKENNA VILLANUEVA Facility: [facility]:[place] : 1940 Planned Disposition: Inpatient Rehab Facility Anticipated Discharge Date: Discharge Date: Expected LOS: Initial Reviewer: [email or web address] Initial Review Date: 07/04/2018 Generated: 07/08/18 12:23 pm Comments DCP- Discharge Planning Updated by [email or web address]: Letty Vizcaino on 07/08/18 10:[address] Informed patient that Ariadna from [facility] states she has been accepted to inpatient rehab. I attempted to call her son at [phone] but his office is closed today. I informed patient that his office is closed and she states she does not know his personal number. I called Chelo per her request at [phone]. Chelo told the patient that she has left her red purse at her home. I informed Chelo that patient is being discharged today to inpatient rehab at [facility]. Patient states she will need to go via the ambulance service in [place] (states she has a contract with them). DCP- Discharge Planning Updated by [email or web address]: Letty Charis on 07/08/18 8:[address] [facility] and procedure note faxed per request. She states they still need to review clinical and will call when accepted. CM will continue to follow and assist with discharge planning/needs. DCP- Discharge Planning Updated by [email or web address]: Emerita Palmer on 07/07/18 10:[address] LATE ENTRY 5422- 9290 CM NOTIFIED BY NURSING STAFF THAT PATIENT' S FAMILY WANTS [facility]. THE FAMILY WANTS TRANSFER TODAY. DR GUALLPA ADVISED THE PATIENT IS READY FOR TRANSFER TO REHAB TODAY. [facility] CM SPOKE W/ COLT. FAXED CLINICAL FOR REVIEW BY RETAIL WAREHOUSE SUPERVISOR AND THE SENSITIZER. COLT STATES THE PATIENT WILL NOT BE TRANSFERED TODAY. THE CLINICAL WILL BE REVIWED IN THE AM. AWAIT DETERMINATION. CONTACT PHONE NUMBER [phone] EXT [phone] FAX NUMBER [phone] ATT ARIADNA Coverage Notice Reviewer: [email or web address] Lucia Vizcaino Notice Issued Date-Time: 07/08/2018 10:58 Notice Type: IM Discharge Notice Notice Delivered To: Patient Relationship to Patient: Self Transformer Shop Supervisor Name: Delivery Method: HAND - Hand Delivered [place] Days: Prior Verbal Notification: Recipient Understood Notice: Yes Recipient Signature: Yes Med Rec Note Co-signed by Attending: Coverage Notice Comment: IMM explained, copy given, original placed in MR Last DP export: 07/08/18 8:10 Patient Name: MCKENNA VILLANUEVA Page [phone] at 1123 All edits/amendments must be made on the electronic document DICTATION DATE: 07/08/181122 PATROL OFFICER: DELBERT 07/08/18 112 RPT#: [id number] DC DATE: STATUS: ADM IN [facility] [address] [place] [address] END OF REPORT
--- NOTE | 2018-07-08 17:01 | NUR ---
PT DISCHARGED TO [facility] WITH REPORT CALLED TO [facility]. ALERT AND ORIENTED X 3 . IV DISCONTINUED ALONG WITH TELEMETRY PRIOR TO DISCHARGE. DISCHARGED UNDER CARE OF [facility] X2 ASSIST. STABLE AT TIME OF DEPARTURE.DRESSING INTACT WITH CAP REFILL <3 SEC TO RT. ANKLE.
--- NOTE | 2018-07-10 16:24 | MORECARE ---
CASE MANAGEMENT DISCHARGE SUMMARY PATIENT: MCKENNA VILLANUEVA UNIT: [id number] ADM DATE: 07/04/18 AGE: 78 : 42 SEX: F ROOM/BED: D.2213 AUTHOR: BECKY,DOC PHYSICIAN: REFERRING PHYSICIAN: JOSELYN DEVRIES MD DATE OF SERVICE: 07/10/18 Discharge Plan Patient Name: MCKENNA VILLANUEVA Facility: [facility]:[place] : 1940 Planned Disposition: Inpatient Rehab Facility Anticipated Discharge Date: Discharge Date: 07/08/2018 Expected LOS: 0 Initial Reviewer: [email or web address] Initial Review Date: 07/04/2018 Generated: 07/10/18 5:24 pm Comments DCP- Discharge Planning Updated by [email or web address]: Letty Vizcaino on 07/08/18 10:[address] Informed patient that Ariadna from [facility] states she has been accepted to inpatient rehab. I attempted to call her son at [phone] but his office is closed today. I informed patient that his office is closed and she states she does not know his personal number. I called Chelo per her request at [phone]. Chelo told the patient that she has left her red purse at her home. I informed Chelo that patient is being discharged today to inpatient rehab at [facility]. Patient states she will need to go via the ambulance service in [place] (states she has a contract with them). DCP- Discharge Planning Updated by [email or web address]: Letty Vizcaino on 07/08/18 8:[address] Spoke with Madiha at [facility]. H&P and procedure note faxed per request. She states they still need to review clinical and will call when accepted. CM will continue to follow and assist with discharge planning/needs. DCP- Discharge Planning Updated by [email or web address]: Emerita Palmer on 07/07/18 10:[address] LATE ENTRY [phone] CM NOTIFIED BY NURSING STAFF THAT PATIENT' S FAMILY WANTS [facility]. THE FAMILY WANTS TRANSFER TODAY. DR GUALLPA ADVISED THE PATIENT IS READY FOR TRANSFER TO REHAB TODAY. [facility] CM SPOKE W/ COLT. FAXED CLINICAL FOR REVIEW BY JAIL MANAGER AND THE PULMONOLOGY PHYSICIAN. COLT STATES THE PATIENT WILL NOT BE TRANSFERED TODAY. THE CLINICAL WILL BE REVIWED IN THE AM. AWAIT DETERMINATION. CONTACT PHONE NUMBER [phone] EXT [phone] FAX NUMBER [phone] ATT ARIADNA Coverage Notice Reviewer: [email or web address] Lucia Vizcaino Notice Issued Date-Time: 07/08/2018 10:58 Notice Type: IM Discharge Notice Notice Delivered To: Patient Relationship to Patient: Self Raised Printer Name: Delivery Method: HAND - Hand Delivered [place] Days: Prior Verbal Notification: Recipient Understood Notice: Yes Recipient Signature: Yes Med Rec Note Co-signed by Attending: Coverage Notice Comment: IMM explained, copy given, original placed in MR Last DP export: 07/08/18 10:23 Patient Name: MCKENNA VILLANUEVA Page [id number] at 1624 All edits/amendments must be made on the electronic document DICTATION DATE: 07/10/181623 DIP LUBE OPERATOR: DELBERT 07/10/18 162 RPT#: [id number] DC DATE:07/08/18 STATUS: DIS IN [facility] [address] [place] [address] END OF REPORT
== END 2018-07-08 17:00 | DRG 493 ==
LOC: D.MS 16:34 → D.SDCHOLD 07-06 18:38 → D.MS 07-06 18:39
PROVIDERS: Family Medicine; Orthopaedic Surgery; ADMIT Emergency Medicine
PROC: 0QSG0ZZ Reposition Right Tibia, Open Approach (ICD-10-PCS; principal; 2018-07-06 08:30)
DX: S82.841A Displaced bimalleolar fracture of right lower leg, initial encounter for closed fracture (principal); F31.89 Other bipolar disorder; W19.XXXA Unspecified fall, initial encounter; I50.9 Heart failure, unspecified; J44.9 Chronic obstructive pulmonary disease, unspecified; J43.9 Emphysema, unspecified; I48.91 Unspecified atrial fibrillation; F31.9 Bipolar disorder, unspecified